=== PATIENT | male | born 1955 | race Caucasian/White ===

== ENCOUNTER 2021-05-07 19:49 | Emergency (ER) | payer OTHER ==
[~2021-05-07] VITALS: Ht 182.9 cm; Wt 106.6 kg
[~2021-05-07 19:49] MED LIST: ALBIPROI INH; ALBU90OI; ALBU90OI INH; AZIT250 PO; CIPR500 PO; CLAR500; Cardizem CD 12120 MG PO; Crutch1 EACH MISC; DIAZ5 PO; FEXPSEER; FLUSAL5005 IH; GUAI600T33 PO; HYDACE5325 PO; LEVA.63IS IH; LEVFLO500 PO; Mucinex600 MG PO; NAPR500 PO; NEBI5 PO; OMEPRAZOLE MAGN20 MG PO; PRED20 PO; Prednisone20 MG PO; THEO100ERA PO; TIOT18 IH; TORSE20 PO; Ventolin Soln3 ML INH; XARELTO20 MG PO; Zithromax250 MG PO; [UNRECOGNIZED DRUG - CODE]
[2021-05-07] MEDS ORDERED: TADALAFIL5 M1 PO (19:58)
[2021-05-07] MEDS ORDERED: Lisinopril2.5 MG (19:58)
[2021-05-07 20:17] LABS: BASOPHILS ABSOLUTE AUTO 0.07 K/mm3 (0.00-0.23); BASOPHILS PERCENT AUTO 1 % (0-2); EOSINOPHILS ABSOLUTE AUTO 0.25 K/mm3 (0.00-0.68); EOSINOPHILS PERCENT AUTO 4 % (0-6); Hemoglobin 15.7 g/dL (13.5-17.5); IMMATURE GRAN ABSOLUTE AUTO 0.03 K/mm3 (0.00-0.10); IMMATURE GRAN PERCENT AUTO 1 % (0-1); LYMPHOCYTES ABSOLUTE AUTO 1.43 K/mm3 (0.84-5.20); LYMPHOCYTES PERCENT AUTO 23 % (21-46); MONOCYTES PERCENT AUTO 8 % (4-13); Mean Corpuscular HGB 30.2 pg (26.0-34.0); Mean Corpuscular HGB Conc 33.4 g/dL (31.5-36.5); Mean Corpuscular Volume 90 fL (80-100); Mean Platelet Volume 10.3 fL (9.1-12.4); NEUTROPHILS ABSOLUTE AUTO 3.92 K/mm3 (1.96-9.15); NEUTROPHILS PERCENT AUTO 63 % (41-73); Platelet Count 176 K/mm3 (150-400); RDW Coefficient Variation 12.9 % (11.7-14.2); RDW Standard Deviation 42.6 fL (35.1-46.3)
[2021-05-07 20:37] LABS: Troponin I <0.015 ng/mL (0.000-0.040)
[2021-05-07 20:38] LABS: Alanine Aminotransfer (ALT/SGP 24 U/L (12-78); Albumin, Blood 3.6 g/dL (3.4-5.0); Albumin/Globulin Ratio 1.1 (0.8-1.8); Alk Phos 83 U/L (50-136); Anion Gap 5 mmol/L (6-16); Aspartate Aminotrans (AST/SGOT 16 U/L (12-37); Bilirubin, Total 0.4 mg/dL (0.1-1.0); Blood Urea Nitrogen 18 mg/dL (8-24); Bun/Creatinine Ratio 20.1 (12.0-20.0); CO2, Blood 28 mmol/L (21-32); Calcium, Blood 8.3 mg/dL (8.5-10.1); Chloride, Blood 102 mmol/L (98-108); Globulin, Blood 3.2 g/dL (2.2-4.0); Glomerular Filtration Rate >60 (60-); Glucose, Blood 103 mg/dL (70-99); Potassium, Blood 4.5 mmol/L (3.5-5.5); Sodium, Blood 135 mmol/L (136-145); Total Protein, Blood 6.8 g/dL (6.4-8.2)
[2021-05-08] MEDS ORDERED: Prednisone50 MG PO (01:03)
[2021-05-08] MEDS ORDERED: Zithromax250 MG PO (01:03)
== END 2021-05-08 01:12 | disposition home or self-care (01) ==
LOC: ER 19:49
PROVIDERS: Physician Assistant
DX: J44.1 Chronic obstructive pulmonary disease with (acute) exacerbation (principal); Z79.01 Long term (current) use of anticoagulants; Z79.52 Long term (current) use of systemic steroids; Z79.899 Other long term (current) drug therapy
CPT/HCPCS: 36415; 71046; 80053; 83880; 84484; 85025; 93005; 93010; 94640; 94644; 99285-25; J7512

== ENCOUNTER 2023-02-22 02:00 | Emergency (ER) | payer MEDICARE ==
[~2023-02-22] VITALS: Ht 182.9 cm; Wt 99.8 kg
[~2023-02-22 02:00] MED LIST changes: +Lisinopril2.5 MG; +Prednisone50 MG PO; +TADALAFIL5 M1 PO
[2023-02-22] MEDS ORDERED: LEVOFLOXACIN50011 PO (02:18)
[2023-02-22] MEDS ORDERED: PRED20 PO (02:19)
[2023-02-22] MEDS ORDERED: IPRATROPIUM BRO30 ML (02:19)
[2023-02-22] MEDS ORDERED: FLUTICASONE PRO16 GM (02:20)
[2023-02-22] MEDS ORDERED: LISI20 PO (02:20)
[2023-02-22] MEDS ORDERED: TRELEGY ELLIPT1 EAC1 IH (02:25)
[2023-02-22 02:53] LABS: Hematocrit 38.7 % (37.0-53.0); Hemoglobin 13.3 g/dL (13.5-17.5); Mean Corpuscular HGB 30.8 pg (26.0-34.0); Mean Corpuscular HGB Conc 34.4 g/dL (31.5-36.5); Mean Corpuscular Volume 90 fL (80-100); Mean Platelet Volume 10.1 fL (9.1-12.4); Platelet Count 234 K/mm3 (150-400); RDW Coefficient Variation 12.5 % (11.7-14.2); RDW Standard Deviation 41.4 fL (35.1-46.3); Red Blood Cell Count 4.32 M/mm3 (4.30-5.90); White Blood Cell Count 7.57 K/mm3 (4.00-11.30)
[2023-02-22 03:17] LABS: Albumin, Blood 2.7 g/dL (3.4-5.0); Albumin/Globulin Ratio 0.7 (0.8-1.8); Bilirubin, Total 0.2 mg/dL (0.1-1.0); Calcium, Blood 8.9 mg/dL (8.5-10.1); Creatinine, Blood 0.63 mg/dL (0.60-1.20); Potassium, Blood 4.2 mmol/L (3.5-5.5); Total Protein, Blood 6.7 g/dL (6.4-8.2)
[2023-02-22 03:30] LABS: Influenza A, PCR NEGATIVE (NEGATIVE); Influenza B, PCR NEGATIVE (NEGATIVE); Resp Syncytial Virus, PCR NEGATIVE (NEGATIVE); SARS-Cov-2 (COVID-19) PCR, MMC NEGATIVE (NEGATIVE)
[2023-02-22 03:51] LABS: BAND PERCENT MAN 1 % (0-8); BASOPHILS ABSOLUTE MAN 0.07 K/mm3 (0.00-0.23); BASOPHILS PERCENT MAN 1 % (0-2); EOSINOPHILS ABSOLUTE MAN 0.15 K/mm3 (0.00-0.68); EOSINOPHILS PERCENT MAN 2 % (0-6); LYMPHOCYTES % ATYPICAL MANUAL 3 % (0-0); LYMPHOCYTES ABSOLUTE MAN 1.51 K/mm3 (0.84-5.20); LYMPHOCYTES PERCENT MAN 17 % (21-46); MONOCYTES ABSOLUTE MAN 0.68 K/mm3 (0.16-1.47); MONOCYTES PERCENT MAN 9 % (4-13); MYELOCYTE ABSOLUTE MAN 0.15 K/mm3 (0.00-0.00); MYELOCYTE PERCENT MAN 2 % (0-0); NEUTROPHILS ABSOLUTE MAN 4.99 K/mm3 (1.96-9.15); SEG NEUTROPHILS PERCENT MAN 65 % (41-73); TOTAL CELLS COUNTED 100
[2023-02-22] MEDS ORDERED: LOSA50 PO (05:57)
== END 2023-02-22 07:33 | disposition home or self-care (01) ==
LOC: ER 02:00
PROVIDERS: Emergency Medicine
DX: T78.3XXA Angioneurotic edema, initial encounter (principal); T46.4X5A Adverse effect of angiotensin-converting-enzyme inhibitors, initial encounter; T39.395A Adverse effect of other nonsteroidal anti-inflammatory drugs [NSAID], initial encounter; I10 Essential (primary) hypertension; J44.9 Chronic obstructive pulmonary disease, unspecified; Z79.52 Long term (current) use of systemic steroids; Z79.899 Other long term (current) drug therapy
CPT/HCPCS: 0241U; 71045; 80053; 85025; 93005; 93010; J1200

== ENCOUNTER 2023-12-07 10:32 | Emergency (ER) | payer MEDICARE, OTHER ==
[~2023-12-07] VITALS: Ht 182.9 cm; Wt 99.8 kg
[~2023-12-07 10:32] MED LIST changes: +FLUTICASONE PRO16 GM; +IPRATROPIUM BRO30 ML; +LEVOFLOXACIN50011 PO; +LISI20 PO; +LOSA50 PO; +TRELEGY ELLIPT1 EAC1 IH
[2023-12-07 11:30] LABS: BASOPHILS ABSOLUTE AUTO 0.03 K/mm3 (0.00-0.23); BASOPHILS PERCENT AUTO 1 % (0-2); EOSINOPHILS ABSOLUTE AUTO 0.02 K/mm3 (0.00-0.68); EOSINOPHILS PERCENT AUTO 1 % (0-6); Hematocrit 48.4 % (37.0-53.0); Hemoglobin 16.5 g/dL (13.5-17.5); IMMATURE GRAN ABSOLUTE AUTO 0.02 K/mm3 (0.00-0.10); IMMATURE GRAN PERCENT AUTO 1 % (0-1); LYMPHOCYTES ABSOLUTE AUTO 0.65 K/mm3 (0.84-5.20); LYMPHOCYTES PERCENT AUTO 16 % (21-46); MONOCYTES ABSOLUTE AUTO 0.48 K/mm3 (0.16-1.47); MONOCYTES PERCENT AUTO 12 % (4-13); Mean Corpuscular HGB 31.3 pg (26.0-34.0); Mean Corpuscular HGB Conc 34.1 g/dL (31.5-36.5); Mean Corpuscular Volume 92 fL (80-100); Mean Platelet Volume 10.3 fL (9.1-12.4); NEUTROPHILS ABSOLUTE AUTO 2.82 K/mm3 (1.96-9.15); NEUTROPHILS PERCENT AUTO 70 % (41-73); Platelet Count 145 K/mm3 (150-400); RDW Coefficient Variation 12.9 % (11.7-14.2); RDW Standard Deviation 43.9 fL (35.1-46.3); Red Blood Cell Count 5.28 M/mm3 (4.30-5.90); White Blood Cell Count 4.02 K/mm3 (4.00-11.30)
[2023-12-07 12:05] LABS: Albumin, Blood 3.2 g/dL (3.4-5.0); Albumin/Globulin Ratio 0.9 (0.8-1.8); Bilirubin, Total 0.5 mg/dL (0.1-1.0); Creatinine, Blood 0.82 mg/dL (0.60-1.20); Globulin, Blood 3.5 g/dL (2.2-4.0); Potassium, Blood 4.3 mmol/L (3.5-5.5); Total Protein, Blood 6.7 g/dL (6.4-8.2)
[2023-12-07 12:21] LABS: Influenza A, PCR NEGATIVE (NEGATIVE); Influenza B, PCR NEGATIVE (NEGATIVE); Resp Syncytial Virus, PCR NEGATIVE (NEGATIVE); SARS-Cov-2 (COVID-19) PCR, MMC NEGATIVE (NEGATIVE)
[2023-12-07 12:45] VITALS: BP 133/102
[2023-12-07] MEDS ORDERED: Prednisone20 MG PO (12:50)
[2023-12-07] MEDS ORDERED: LEVFLO500 PO (12:50)
== END 2023-12-07 13:25 | disposition home or self-care (01) ==
LOC: ER 10:32
PROVIDERS: Physician Assistant
DX: J44.1 Chronic obstructive pulmonary disease with (acute) exacerbation (principal); I10 Essential (primary) hypertension; F17.210 Nicotine dependence, cigarettes, uncomplicated; Z79.52 Long term (current) use of systemic steroids; Z79.899 Other long term (current) drug therapy; Z11.52 Encounter for screening for COVID-19
CPT/HCPCS: 0241U; 71045; 80053; 83880; 85025; 85379; 93005; 93010; 94640; 94664; 99285-25; A9270; J7512

== ENCOUNTER 2023-12-09 13:51 | Inpatient (IN) | payer MEDICARE, OTHER ==
[~2023-12-09] VITALS: Ht 182.9 cm; Wt 98.4 kg
[2023-12-09 14:49] LABS: BASOPHILS ABSOLUTE AUTO 0.02 K/mm3 (0.00-0.23); BASOPHILS PERCENT AUTO 0 % (0-2); EOSINOPHILS PERCENT AUTO 0 % (0-6); Hematocrit 50.2 % (37.0-53.0); IMMATURE GRAN ABSOLUTE AUTO 0.03 K/mm3 (0.00-0.10); IMMATURE GRAN PERCENT AUTO 1 % (0-1); LYMPHOCYTES ABSOLUTE AUTO 0.37 K/mm3 (0.84-5.20); LYMPHOCYTES PERCENT AUTO 7 % (21-46); MONOCYTES ABSOLUTE AUTO 0.11 K/mm3 (0.16-1.47); MONOCYTES PERCENT AUTO 2 % (4-13); Mean Corpuscular HGB Conc 33.9 g/dL (31.5-36.5); Mean Corpuscular Volume 92 fL (80-100); Mean Platelet Volume 10.6 fL (9.1-12.4); NEUTROPHILS ABSOLUTE AUTO 4.77 K/mm3 (1.96-9.15); NEUTROPHILS PERCENT AUTO 90 % (41-73); Platelet Count 192 K/mm3 (150-400); RDW Coefficient Variation 12.9 % (11.7-14.2); RDW Standard Deviation 43.4 fL (35.1-46.3); Red Blood Cell Count 5.48 M/mm3 (4.30-5.90)
[2023-12-09 15:17] LABS: Albumin, Blood 3.5 g/dL (3.4-5.0); Albumin/Globulin Ratio 0.9 (0.8-1.8); Bilirubin, Total 0.5 mg/dL (0.1-1.0); Bun/Creatinine Ratio 22.3 (12.0-20.0); Calcium, Blood 9.7 mg/dL (8.5-10.1); Creatinine, Blood 0.76 mg/dL (0.60-1.20); Globulin, Blood 3.8 g/dL (2.2-4.0); Potassium, Blood 4.6 mmol/L (3.5-5.5); Total Protein, Blood 7.3 g/dL (6.4-8.2)
[2023-12-09 22:30] VITALS: BP 136/98
--- NOTE | 2023-12-09 23:56 | NUR ---
NEW ADMIT. PATIENT ARRIVED TO ROOM 327 VIA WHEELCHAIR AND ONE PERSON ASSIST FROM ER. PATIENT ARRIVED WITH 4 L'S OF O2 VIA OXYGEN TANK. PATIENT SELF TRANSFERED TO HOSPITAL BED FROM WHEELCHAIR.
[2023-12-10 04:16] VITALS: BP 126/78
--- NOTE | 2023-12-10 04:24 | NUR ---
SHIFT SUMMARY. PATIENT IS AOX4. PATIENT HAS SOB WITH EXERTION. PATIENT IS ON 4 L'S O2 VIA NASAL CANNULA SATTING >93%. PATIENT HAS STEADY GAIT, IS CURRENTLY A SBA D/T LINES, TUBES, AND TELE. PATIENT CALLS APPROPRIATELY AND IS ABLE TO MAKE HIS NEEDS KNOWN. PATIENT HAS HOME MEDS LOCKED IN DRAWER. PATIENT IS AN EVERYDAY SMOKER-DENIES NEED FOR NICOTINE PATCH. PATIENT IS RESTING W/RESPIRATIONS EQUAL AND UNLABORED. PATIENT DENIES PAIN. BED IS LOCKED IN THE LOWEST POSITION WITH CALL LIGHT IN REACH. NO S/S OF DISTRESS NOTED AT THIS TIME.
[2023-12-10 06:23] LABS: Hematocrit 46.5 % (37.0-53.0); Hemoglobin 15.4 g/dL (13.5-17.5); Mean Corpuscular HGB Conc 33.1 g/dL (31.5-36.5); Mean Corpuscular Volume 94 fL (80-100); Mean Platelet Volume 10.8 fL (9.1-12.4); Platelet Count 172 K/mm3 (150-400); RDW Coefficient Variation 12.9 % (11.7-14.2); RDW Standard Deviation 44.1 fL (35.1-46.3); Red Blood Cell Count 4.97 M/mm3 (4.30-5.90); White Blood Cell Count 4.64 K/mm3 (4.00-11.30)
[2023-12-10 06:39] LABS: Calcium, Blood 8.6 mg/dL (8.5-10.1); Creatinine, Blood 0.79 mg/dL (0.60-1.20); Potassium, Blood 4.7 mmol/L (3.5-5.5)
[2023-12-10 07:21] VITALS: BP 150/97
--- NOTE | 2023-12-10 09:00 | NUR ---
pt sitting up on the side of the bed awake a/ox4, upset about his stay durring the ER, was able to fix a couple of the complaints others were dr concerning meds, he has a bag of meds in his room, I explained to him he isn't suppose to have his medications in the room, asked me if he could just take his, explained why he should not, he agreed not to, explained the DrShayla will likely order more iv abx when he comes so not to take his from home, lungs have exp wheezing t/o, nonproductive cough, on 3 liters o2 via n/c, resp even and unlabored, hrr, no edema noted, ppp+2, cap refill <3 sec, vs stable, afebrile, piv to rac is clear and patent, infusing ns as ordered, btx4, abd flat soft nontender, voids without diff, skin c/w/d, maew, daniel, call light in reach.
--- NOTE | 2023-12-10 13:00 | NUR ---
was in, ordered iv levaquin, told pt it's due at 1400, will bring in soon, he said he took his own med, explained that we talked about this this am, he agreed to not take it, he started in on something about the ED. notified Dr. Sanchez, and told pt will start iv med tomorrow as he took po levaquin. call light in reach.
[2023-12-10 16:42] VITALS: BP 147/97
--- NOTE | 2023-12-10 19:20 | NUR ---
pt had a coughing episode that raised his heart rate to the 104's per tele monitor, he states nonproductive, no further changes this shift, call light in reach.
[2023-12-10 20:29] VITALS: BP 144/90
--- NOTE | 2023-12-10 23:34 | NUR ---
HOSPITALIST CONTACTED. HOSPITALIST NOTIFIED OF PATIENT HAVING A 24 BEAT RUN OF V-TACH. HOSPITALIST ASKED WHAT PATIENT WAS ADMITTED FOR-PATIENT ADMITTED FOR COPD EXACERBATOIN. HOSPITALIST MADE NO ORDERS OR CHANGES AT THIS TIME PATIENT IS ASYMPTOMATIC. PATIENT WILL CONTINUE TO BE MONITORED BY TELEMETRY.
--- NOTE | 2023-12-11 00:45 | NUR ---
HOSPITALIST CONTACTED. PATIENT HAS HAD CHANGES TO HIS TELEMETRY MONITORING. EKG DONE AND CHANGES NOTED TO THE EKG-NOTIFIED HOSPITALIST DR. DE LA CRUZ. DR. DE LA CRUZ CAME UP TO MEDICAL FLOOR AND REVIEWED PATIENTS EKG AND RHYTHM STRIPS. DR. DE LA CRUZ PUT IN ORDER FOR MAGNESSIUM LEVEL TO BE DRAWN. PATIENT ASYMPTOMATIC.
[2023-12-11 01:33] LABS: BASOPHILS ABSOLUTE AUTO 0.02 K/mm3 (0.00-0.23); BASOPHILS PERCENT AUTO 0 % (0-2); EOSINOPHILS ABSOLUTE AUTO 0.19 K/mm3 (0.00-0.68); EOSINOPHILS PERCENT AUTO 3 % (0-6); Hematocrit 44.9 % (37.0-53.0); Hemoglobin 14.8 g/dL (13.5-17.5); IMMATURE GRAN ABSOLUTE AUTO 0.05 K/mm3 (0.00-0.10); IMMATURE GRAN PERCENT AUTO 1 % (0-1); LYMPHOCYTES ABSOLUTE AUTO 0.39 K/mm3 (0.84-5.20); LYMPHOCYTES PERCENT AUTO 6 % (21-46); MONOCYTES ABSOLUTE AUTO 0.27 K/mm3 (0.16-1.47); MONOCYTES PERCENT AUTO 4 % (4-13); Mean Corpuscular Volume 94 fL (80-100); Mean Platelet Volume 10.2 fL (9.1-12.4); NEUTROPHILS ABSOLUTE AUTO 5.56 K/mm3 (1.96-9.15); NEUTROPHILS PERCENT AUTO 86 % (41-73); Platelet Count 163 K/mm3 (150-400); RDW Coefficient Variation 12.8 % (11.7-14.2); RDW Standard Deviation 44.1 fL (35.1-46.3); Red Blood Cell Count 4.77 M/mm3 (4.30-5.90); White Blood Cell Count 6.48 K/mm3 (4.00-11.30)
[2023-12-11 01:50] LABS: Bun/Creatinine Ratio 26.4 (12.0-20.0); Calcium, Blood 8.5 mg/dL (8.5-10.1); Creatinine, Blood 0.72 mg/dL (0.60-1.20); Magnesium, Blood 2.2 mg/dL (1.6-2.4); Potassium, Blood 4.7 mmol/L (3.5-5.5)
--- NOTE | 2023-12-11 03:15 | NUR ---
TELEMETRY CONTACTED THIS RN TO NOTIFY PATIENTS HEART RATE HAD BEEN FLEXUATING FROM THE 90'S- TO 1-TEENS. PATIENT SUSTAINED IN AT 118-120 FOR APPROX. 6 MINUTES. PATIENT ASYMPTOMATIC. CURRENT HEART RATE DOWN TO 95.
[2023-12-11 03:57] VITALS: BP 127/73
--- NOTE | 2023-12-11 04:30 | NUR ---
SHIFT SUMMARY. PATIENT IS APX4. PATIENT CALLS APPROPRIATELY AND IS ABLE TO MAKE HIS NEEDS KNOWN. PATIENT HAS HAD CHANGES TO HIS EKG AND TELEMETRY READINGS-SEE PREVIOUS NOTES. PATIENT HAS SLEPT OFF AND ON T/O NIGHT. PATIENT REQUESTED FOR SOME SNACKS-CHEESE PROVIDED. PATIENTS NEEDS ADDRESSED. PATIENT DENIES PAIN. PATIENT REPORTS THAT HE IS STILL HAVING SOB AND THAT IT IS THE SAME FROM WHEN HE CAME IN. BED IS LOCKED IN THE LOWEST POSITION WITH CALL LIGHT IN REACH.
[2023-12-11 08:12] VITALS: BP 150/88
--- NOTE | 2023-12-11 12:00 | NUR ---
pt was going to take a shower, got into shower and sat down and desated to mid 80's, was on 2 liters at that time, he was assisted back to bed and o2 turned back up to 4 liters and is doing better but going to hold off on the shower. call light in reach.
[2023-12-11 16:13] VITALS: BP 152/91
--- NOTE | 2023-12-11 17:06 | NUR ---
pt laying in bed states his night was ok and feeling better this am, a/ox4, cooperative with care, lungs are course with exp wheezing t/o, has a nonproductive harsh cough, currently on 4 liters 02 via n/c, resp even and unlabored at rest, hrr, tele in place running st in the oneteens per monitor, see strip, no edema noted, ppp+2, cap refill<3 sec, vs stable, afebrile, piv to rac site is clear and patent, btx4, abd flat soft nontender, voids without diff, skin c/w/d, maew, daniel, call light in reach.
--- NOTE | 2023-12-11 18:34 | NUR ---
pt doing well this evening, no further changes this shift. call light in reach.
[2023-12-11 19:46] VITALS: BP 141/100
[2023-12-12 03:35] VITALS: BP 116/81
[2023-12-12 05:21] LABS: BASOPHILS ABSOLUTE AUTO 0.01 K/mm3 (0.00-0.23); BASOPHILS PERCENT AUTO 0 % (0-2); EOSINOPHILS PERCENT AUTO 0 % (0-6); Hematocrit 46.3 % (37.0-53.0); Hemoglobin 15.3 g/dL (13.5-17.5); IMMATURE GRAN ABSOLUTE AUTO 0.09 K/mm3 (0.00-0.10); IMMATURE GRAN PERCENT AUTO 1 % (0-1); LYMPHOCYTES PERCENT AUTO 6 % (21-46); MONOCYTES ABSOLUTE AUTO 0.46 K/mm3 (0.16-1.47); MONOCYTES PERCENT AUTO 6 % (4-13); Mean Corpuscular HGB 31.3 pg (26.0-34.0); Mean Corpuscular Volume 95 fL (80-100); Mean Platelet Volume 10.4 fL (9.1-12.4); NEUTROPHILS ABSOLUTE AUTO 7.25 K/mm3 (1.96-9.15); NEUTROPHILS PERCENT AUTO 87 % (41-73); Platelet Count 180 K/mm3 (150-400); RDW Coefficient Variation 12.7 % (11.7-14.2); RDW Standard Deviation 44.2 fL (35.1-46.3); Red Blood Cell Count 4.89 M/mm3 (4.30-5.90); White Blood Cell Count 8.31 K/mm3 (4.00-11.30)
[2023-12-12 06:04] LABS: Anion Gap Unable to Calculate mmol/L (6-16); Blood Urea Nitrogen 19 mg/dL (8-24); Bun/Creatinine Ratio 22.2 (12.0-20.0); CO2, Blood 37 mmol/L (21-32); Calcium, Blood 8.8 mg/dL (8.5-10.1); Chloride, Blood 102 mmol/L (98-108); Creatinine, Blood 0.86 mg/dL (0.60-1.20); Glomerular Filtration Rate 96 (60-); Glucose, Blood 132 mg/dL (70-99); Potassium, Blood 4.8 mmol/L (3.5-5.5); Sodium, Blood 138 mmol/L (136-145)
--- NOTE | 2023-12-12 07:45 | NUR ---
SHIFT SUMMARY. PATIENT IS ALERT AND ORIENTED X4. PATIENT IS INDEPENDENT IN ROOM. PATIENT ON 4 L'S VIA NASAL CANNULA. PATIENT CALLS APPROPRIATELY AND IS ABLE TO MAKE NEEDS KNOWN. PATIENTS TELE IS ON AND LEADS ON PLACE. NO ACUTE CHANGES NOTED T/O SHIFT. BED IS LOCKED IN THE LOWEST POSITION WITH CALL LIGHT IN REACH. NO S/S OF DISTRESS NOTED..
[2023-12-12 07:49] VITALS: BP 153/100
[2023-12-12 16:55] VITALS: BP 147/80
--- NOTE | 2023-12-12 18:20 | NUR ---
PATIENT A/OX4, UP INDEPENDENTLY IN ROOM. VSS, 4LO2 VIA NC TO MAINTAIN SATS. RA IS BASELINE. ST WITH BBB 110-120 THIS EVENING. DENIES ANY CHEST PAIN OR PRESSURE. LUNGS WITH WHEEZES THROUGHOUT, SPUTUM SAMPLE SENT THIS AFTERNOON. SKIN INTACT. CALM AND COOPERATIVE WITH CARE, ABLE TO MAKE NEEDS KNOWN. 20G IV TO L WRIST AND SL. TOLERATING REGULAR DIET. NO NEW CONCERNS THIS THIS SHIFT.
[2023-12-12 19:20] VITALS: BP 129/88
[2023-12-13 02:52] VITALS: BP 118/72
--- NOTE | 2023-12-13 04:20 | NUR ---
SHIFT SUMMARY CHELO WAS ALERT AND FULLY ORIENTED ON ASSESSMENT, AND HE IS INDEPENDENT IN THE ROOM. PT HERE FOR COPD EXACERBATION AND PRIMARY COMPLAINT IS SOB. PT SATTING 95% ON 4L VIA NC, HR IS TACHY 90'S -100'S. PT HAD AN EPISODE OF DRAMATICALLY INCREASED SOB DURING A DUONEB TREATMENT EARLY IN THE SHIFT, WITH DESATURATION TO 86% FOR A BRIEF PERIOD. EPISODE RESOLVED QUICKLY WITH NO INTERVENTIONS NEEDED, TELE REPORTS EPISODES OF ST ELEVATION THAT COINSIDE WITH PT EXERTION. HOSPITALIST NOTIFIED OF EVENT, CONTINUOUS BIOX APPLIED. AFTER DISCUSSING THE PT'S EPISODE OF DISTRESS WITH THE PT, IT SEEMS LIKELY THAT THE PT'S SOB BECAME EXACERBATED BY ANXIETY. NO OTHER EVENTS TONIGHT, PT RESTING IN BED IN A LOW POSITION WITH THE CALL LIGHT IN REACH.
[2023-12-13 08:03] VITALS: BP 114/81
[2023-12-13 14:03] LABS: Adenovirus Not Detected (NOT DETECT); Bordetella pertussis Not Detected (NOT DETECT); Chlamydophila pneumoniae Not Detected (NOT DETECT); Coronavirus 229E Not Detected (NOT DETECT); Coronavirus HKU1 Not Detected (NOT DETECT); Coronavirus NL63 Not Detected (NOT DETECT); Coronavirus OC43 Not Detected (NOT DETECT); Human Metapneumovirus Not Detected (NOT DETECT); Human Rhinovirus/Enterovirus Not Detected (NOT DETECT); Influenza A/2009-H1 Not Detected (NOT DETECT); Influenza A/H1 Not Detected (NOT DETECT); Influenza A/H3 Not Detected (NOT DETECT); Influenza B Not Detected (NOT DETECT); Mycoplasma pneumoniae Not Detected (NOT DETECT); Parainfluenza Virus 1 Not Detected (NOT DETECT); Parainfluenza Virus 2 Not Detected (NOT DETECT); Parainfluenza Virus 3 Not Detected (NOT DETECT); Parainfluenza Virus 4 Not Detected (NOT DETECT); Respiratory Syncytial Virus Not Detected (NOT DETECT); SARS-Cov-2 (COVID-19), BioFire Not Detected (NOT DETECT)
[2023-12-13 16:45] VITALS: BP 119/84
--- NOTE | 2023-12-13 19:05 | NUR ---
SHIFT SUMMARY PATIENT HAD SOME EPISODES OF DESAT TO 86-89% ON 4LPM WITH TALKING OR COUGHING AT THIS AFTERNOON HAD SOME CHEST PRESSURE WITH HR UP TO 120 AND O2 86%. O2 INCREASED TO 5LPM AND SATTING AT 91-93%, HR CAME DOWN TO 110. EKG DONE. DR TRIPLETT NOTIFIED. TROPONINS ORDERED. PATIENT REPORTS PAIN GONE BY END OF EKG. HE IS UP TO BATHROOM INDEPENDENT. BED IN LOW POSITION, CALL LIGHT IN REACH. HE CALLS APPROPRIATELY
[2023-12-13 20:07] VITALS: BP 140/85
--- NOTE | 2023-12-13 23:40 | NUR ---
NOTIFIED BY U ASSISTANT TODDLER TEACHER THAT PT HAS HAD SUSTAINED ST ELEVATION SINCE CONTINUOS CARDIAC MONITORING INITIATED. EKG DURING DAY SHIFT UNCHANGED FROM PRIOR EKG'S. PT ASYMPTOMATIC LYING IN BED WATCHING TV HR HIGH 90'S. HOSPITALIST NOTIFIED AND NO FURTHER ORDERS AT THIS TIME. WILL CONTINUE TO MONITOR FOR CHANGE IN PT CONDITION.
[2023-12-14 05:09] VITALS: BP 108/60
--- NOTE | 2023-12-14 06:44 | NUR ---
SHIFT SUMMARY NOC PT A/O X 4. PLEASANT AND COOPERATIVE WITH CARE. PT HAD FREQUENT COUGING EPISODES AT BEGINNING OF SHIFT AND HR WOULD CLIMB INTO 120'S-130'S AND WOULD DESATURATE TO MID 80'S WHILE ON 4L/NC. O2 TITRATED TO 4.5L/NC, SPO2 BEING MAINTAINED > 90% ON BIOX. ON TELE RUNNING SINUS TACHYCARDIA IN LOW 100'S WHEN AT REST AND 120'S WHEN COUGHING. TELE NOTIFIED RN THAT PT HAS HAD CONSTANT ST ELEVATION SINCE ADMIT, PT ASYMPTOMATIC WHEN CHECKED AND HOSPITALIST NOTIFIED WITH NO FURTHER ORDERS GIVEN, WILL CONTINUE TO MONITOR FOR CHANGE IN PT CONDITION. PT IS CURRENTLY RESTING WITH BED IN LOWEST POSITION, AND CALL LIGHT WITHIN REACH.
[2023-12-14 09:29] VITALS: BP 132/81
--- NOTE | 2023-12-14 10:15 | NUR ---
PATIENT REFUSING TO WEAR A PATIENT WRIST BAND, THERE IS A WRIST BAND TAPED TO THE COMPUTER IN THE ROOM, I NOTIFIED PATIENT PER HOSPITAL POLICY AND SAFETY WE REQUIRE WRIST BAND TO BE WORN, AND PATIENT STILL DECLINED TO WEAR ONE. THE ISSUE STARTED TO AGITATE THE PATIENT, CHARGE NURSE NOTIFIED.
[2023-12-14 16:19] VITALS: BP 163/80
[2023-12-14 19:40] VITALS: BP 134/78
--- NOTE | 2023-12-14 20:30 | NUR ---
SHIFT SUMMARY PATIENT COUGHING UP HINES THICK SPUTUM THROUGHOUT DAY AND DESATURATES TO LOW 80 WITH HR UP TO 130S BRIEFLY REQUIRING ADDITIONAL OXYGEN THROUGH MOUTH UP O 10 LPM, AFTER 1 MINUTE O2 INCREASES TO 94% AND HR COMES DOWN TO 100. O2 NC THEN DECREASED TO 5LPM WITH SAT GENERALLY BETWEN 88-91% RESTING. DR TRIPLETT AWARE, FOLLOW UP CHEST XRAY ORDERED FOR TOMORROW, CHEST PHISIOTHERAPY ALSO ORDERED. PATIENT UP AD WENDIE IN ROOM, BED IN LOW POSITION, CALL [facility] IN REACH. PATIENT ABLE TO MAKE NEEDS KNOWN.
[2023-12-15 02:25] VITALS: BP 108/70
--- NOTE | 2023-12-15 04:12 | NUR ---
SHIFT SUMMARY: PT SLEPT MOST OF THE NIGHT. PT WOULD WAKE OCCASIONALLY WITH COUGING. DURING COUGHING SPELLS PT CONTINIOUS PULSE OX DROPPING BELOW 90 AND PULSE WOULD ELEVATE TO 120'S. MULTIPLE TIMES I WOULD CHECK ON PT AND OXYGEN WOULD BE AROUND HIS CHIN. PT REPORTING HE LIKES TO KEEP NASAL CANNULA IN HIS MOUTH BUT IT APPEARS TO BE SLIPPING OFF THROUGH THE NIGHT. PT CURRENTLY ON 5L O2. PT PRODUCING THICK HINES-WHITE SPUTUM WHEN COUGHING. COUGH SOUNDS WET AND LABORED. TELE READING SINUS TACH, HR 115. PT IS HAVING A REPEAT CHEST X RAY THIS AM. 12/15/23 DAYANA SCHULTZ RN
[2023-12-15 05:43] LABS: BASOPHILS ABSOLUTE AUTO 0.02 K/mm3 (0.00-0.23); BASOPHILS PERCENT AUTO 0 % (0-2); EOSINOPHILS PERCENT AUTO 0 % (0-6); Hematocrit 50.1 % (37.0-53.0); Hemoglobin 16.3 g/dL (13.5-17.5); IMMATURE GRAN ABSOLUTE AUTO 0.11 K/mm3 (0.00-0.10); IMMATURE GRAN PERCENT AUTO 1 % (0-1); LYMPHOCYTES ABSOLUTE AUTO 0.34 K/mm3 (0.84-5.20); LYMPHOCYTES PERCENT AUTO 4 % (21-46); MONOCYTES ABSOLUTE AUTO 0.43 K/mm3 (0.16-1.47); MONOCYTES PERCENT AUTO 5 % (4-13); Mean Corpuscular HGB 30.7 pg (26.0-34.0); Mean Corpuscular HGB Conc 32.5 g/dL (31.5-36.5); Mean Corpuscular Volume 94 fL (80-100); Mean Platelet Volume 9.9 fL (9.1-12.4); NEUTROPHILS ABSOLUTE AUTO 7.48 K/mm3 (1.96-9.15); NEUTROPHILS PERCENT AUTO 89 % (41-73); Platelet Count 201 K/mm3 (150-400); RDW Coefficient Variation 12.6 % (11.7-14.2); Red Blood Cell Count 5.31 M/mm3 (4.30-5.90); White Blood Cell Count 8.38 K/mm3 (4.00-11.30)
[2023-12-15 06:12] LABS: Bilirubin, Total 0.5 mg/dL (0.1-1.0); Bun/Creatinine Ratio 27.5 (12.0-20.0); Calcium, Blood 8.6 mg/dL (8.5-10.1); Creatinine, Blood 0.95 mg/dL (0.60-1.20); Globulin, Blood 2.9 g/dL (2.2-4.0); Potassium, Blood 4.7 mmol/L (3.5-5.5); Total Protein, Blood 5.9 g/dL (6.4-8.2)
[2023-12-15 07:44] VITALS: BP 154/96
[2023-12-15 15:57] VITALS: BP 124/74
[2023-12-15 19:25] VITALS: BP 122/83
--- NOTE | 2023-12-15 19:58 | NUR ---
SHIFT SUMMARY: PT A/O X 4, IND IN ROOM PLEASANT AND COOPERATIVE. PT O2 TITRATED BETWEEN 5-7 LPM VIA NC THROUGHOUT THE DAY. CURRENTLY ON 7 LPM. CONTINUES TO HAVE HARSH COUGHING SPELLS DESPITE ROBITUSSIN. MINIMAL SPUTUM PRODUCTION, LS WHEEZING THROUGHOUT. PT KEEPS HIS HOME MEDS IN THE ROOM, REFUSES TO ALLOW THEM TO BE LOCKED UP. MD AWARE. PT AGREES VERBALLY HE WILL NOT TAKE MORE THAN WHAT IS PRESCRIBED AND WILL TAKE AT TIME IT IS DUE.
--- NOTE | 2023-12-15 23:42 | NUR ---
TELE; NOTIFIED BY TELE THAT PT HAD A 6 BEAT RUN OF VTACH. PT ASYMPTOMATIC AND LYING IN BED. WILL CONTINUE TO MONITOR.
[2023-12-16 03:40] VITALS: BP 109/73
--- NOTE | 2023-12-16 04:27 | NUR ---
SHIFT SUMMARY PT A&O X4, COOPERATIVE WITH CARE. TELEMETRY: ST @ 109. PT ON 5-7 L VIA NC. PT DESATS IN THE 80S. NEEDS REMINDERS TO KEEP OXYGEN IN. CONT BOIX MONITORING IN PLACE. PT HAS VERY HARSH COUGH. DECLINED NEEDING PRN COUGH MEDS. PT KEEPS HOME MEDICATIONS WITH HIM, REFUSES TO LOCK UP. PER REPORT AWARE. PT TO NOTIFY BEFORE TAKING ANY MEDICATIONS AND AGREES TO TAKE THEM AT THE SCHEDULED TIMES. PT INDEPENDENT IN ROOM. BED KEPT IN LOWEST POSITION WITH CALL LIGHT WITHIN REACH.
[2023-12-16 07:10] VITALS: BP 134/78
[2023-12-16 15:52] VITALS: BP 125/69
--- NOTE | 2023-12-16 18:40 | NUR ---
NO ACUTE CHANGES THIS SHIFT. PATIENT REMAINS ON 3-5L O2 VIA NS. SR/ST ON TELE. HAS HAD SHORT RUNS OF SVT OVER THE THE LAST FEW DAYS, AND THEN HR QUICKLY RETURNS TO 100-110. TOLERATING DIET. INDEPENDENT IN ROOM. COOPERATIVE WITH CARE, ABLE TO MAKE NEEDS KNOWN.
[2023-12-16 19:11] VITALS: BP 138/79
--- NOTE | 2023-12-17 03:56 | NUR ---
SHIFT SUMMARY MR SERRANO HAD AN EPISODE OF FEELING SOB AND TIGHTNESS IN HIS CHEST LAST EVENING WHICH WAS ALMOST IMMEDIATELY RELIEVED WITH ROBOTUSSIN. HE SAID IT GIVES HIM RAPID RELIEF. ON CONTINUOUS PULSE OXIMETER LOWEST READING NOTED TO BE 88%. HE HAS MOSTLY BEEN ON 5L N/C, HE DID INCREASE HIS OWN N/C UP TO 7L LAST EVENING WHICH WAS DECREASED BACK TO 5 WHEN HIS PULSE OX WAS MID 90S. ON TELEMETRY ST - NO CALLS FROM [email or web address]. HE DID DO INCENTIVE SPIROMETER WITH GOOD TECHNIQUE UP TO 750CC. UP INDEPENDENTLY TO THE BATHROOM. DENIED PAIN. BED LOW, CALL LIGHT IN REACH.
[2023-12-17 04:34] VITALS: BP 152/97
[2023-12-17 04:54] LABS: BASOPHILS ABSOLUTE AUTO 0.04 K/mm3 (0.00-0.23); BASOPHILS PERCENT AUTO 0 % (0-2); EOSINOPHILS PERCENT AUTO 0 % (0-6); Hematocrit 51.2 % (37.0-53.0); Hemoglobin 17.1 g/dL (13.5-17.5); IMMATURE GRAN ABSOLUTE AUTO 0.19 K/mm3 (0.00-0.10); IMMATURE GRAN PERCENT AUTO 2 % (0-1); LYMPHOCYTES ABSOLUTE AUTO 0.31 K/mm3 (0.84-5.20); LYMPHOCYTES PERCENT AUTO 3 % (21-46); MONOCYTES ABSOLUTE AUTO 0.51 K/mm3 (0.16-1.47); MONOCYTES PERCENT AUTO 5 % (4-13); Mean Corpuscular HGB 31.4 pg (26.0-34.0); Mean Corpuscular HGB Conc 33.4 g/dL (31.5-36.5); Mean Corpuscular Volume 94 fL (80-100); Mean Platelet Volume 9.8 fL (9.1-12.4); NEUTROPHILS ABSOLUTE AUTO 9.22 K/mm3 (1.96-9.15); NEUTROPHILS PERCENT AUTO 90 % (41-73); Platelet Count 179 K/mm3 (150-400); RDW Coefficient Variation 12.5 % (11.7-14.2); RDW Standard Deviation 43.1 fL (35.1-46.3); Red Blood Cell Count 5.45 M/mm3 (4.30-5.90); White Blood Cell Count 10.27 K/mm3 (4.00-11.30)
[2023-12-17 05:16] LABS: Calcium, Blood 8.8 mg/dL (8.5-10.1); Creatinine, Blood 0.84 mg/dL (0.60-1.20); Potassium, Blood 5.2 mmol/L (3.5-5.5)
[2023-12-17 07:06] VITALS: BP 144/88
--- NOTE | 2023-12-17 10:25 | NUR ---
MEDICATIONS PATIENT HAS HOME MEDS THAT HE IS DECLINING TO LET STAFF LOCK UP, STATED HE WILL LET RN KNOW IF HE USES THEM. EDUCATION ON POLICIES PROVIDED VERBALLY, PATIENT STATED "I DON'T GIVE A SHIT ABOUT POLICY, YOU CAN THROW IT OUT THE WINDOW, I'M KEEPING WHAT I NEED TO HELP ME BREATHE". CHARGE MADE AWARE. PATIENT EXPRESSED CONCERN WITH INCORRECT DOSE PILL COMING FROM PHARMACY, VERIFIED DOSE OF TADALFIL WELL PILL SHAPE AND COLOR WITH PHARM STAFF WELL WITH [employer] TO ASSIST WITH PATIENT'S ANXIETY. CARES ONGOING
[2023-12-17 15:35] VITALS: BP 116/71
--- NOTE | 2023-12-17 16:44 | NUR ---
SHIFT SUMMARY PATIENT AMBULATING IN ROOM INDEPENDENTLY THIS SHIFT, TITRATING HIS OWN OXYGEN BETWEEN 5 AND 7 LITERS. C/O SOB, ENCOURAGED TO USE INCENTIVE SPIROMETER AND FLUTTER VALVE THROUGHOUT SHIFT. SINUS TACH WITH PVC'S ON TELE. CARES ONGOING.
[2023-12-17 17:48] LABS: CK TOTAL 159 U/L (39-308); CK-BB 0 % (0-0); CK-MACRO TYPE I 0 % (0-0); CK-MACRO TYPE II 0 % (0-0); CK-MB 0 % (0-4); CK-MM 100 % (96-100)
--- NOTE | 2023-12-18 04:25 | NUR ---
SHIFT SUMMARY CHELO WAS ALERT AND ORIENTED ON ASSESSMENT. 02 SATS AND SUPPLEMENTAL O2 DEMAND IMPROVED TONIGHT, PT CURRENTLY ON 3L VIA WV SATTING 94% . PT STATES THAT HE FEELS PRETTY GOOD TONIGHT. NO ACUTE EVENTS, NO NOTED CHANGES TO CONDITION, PT DENIES NEW OR WORSENING SYMPTOMS. PT RESTING IN BED AT A LOW POSITION WITH CALL LIGHT IN REACH.
[2023-12-18 04:41] LABS: BASOPHILS ABSOLUTE AUTO 0.01 K/mm3 (0.00-0.23); BASOPHILS PERCENT AUTO 0 % (0-2); EOSINOPHILS PERCENT AUTO 0 % (0-6); Hematocrit 46.1 % (37.0-53.0); Hemoglobin 15.4 g/dL (13.5-17.5); IMMATURE GRAN ABSOLUTE AUTO 0.11 K/mm3 (0.00-0.10); IMMATURE GRAN PERCENT AUTO 1 % (0-1); LYMPHOCYTES ABSOLUTE AUTO 0.36 K/mm3 (0.84-5.20); LYMPHOCYTES PERCENT AUTO 4 % (21-46); MONOCYTES ABSOLUTE AUTO 0.65 K/mm3 (0.16-1.47); MONOCYTES PERCENT AUTO 7 % (4-13); Mean Corpuscular HGB 31.2 pg (26.0-34.0); Mean Corpuscular HGB Conc 33.4 g/dL (31.5-36.5); Mean Corpuscular Volume 93 fL (80-100); Mean Platelet Volume 9.7 fL (9.1-12.4); NEUTROPHILS ABSOLUTE AUTO 7.84 K/mm3 (1.96-9.15); NEUTROPHILS PERCENT AUTO 88 % (41-73); Platelet Count 160 K/mm3 (150-400); RDW Coefficient Variation 12.4 % (11.7-14.2); RDW Standard Deviation 42.7 fL (35.1-46.3); Red Blood Cell Count 4.94 M/mm3 (4.30-5.90); White Blood Cell Count 8.97 K/mm3 (4.00-11.30)
[2023-12-18 04:59] LABS: Anion Gap Unable to Calculate mmol/L (6-16); Blood Urea Nitrogen 28 mg/dL (8-24); Bun/Creatinine Ratio 39.5 (12.0-20.0); CO2, Blood 39 mmol/L (21-32); Calcium, Blood 8.1 mg/dL (8.5-10.1); Chloride, Blood 99 mmol/L (98-108); Creatinine, Blood 0.71 mg/dL (0.60-1.20); Glomerular Filtration Rate 101 (60-); Glucose, Blood 132 mg/dL (70-99); Potassium, Blood 5.1 mmol/L (3.5-5.5); Sodium, Blood 137 mmol/L (136-145)
[2023-12-18 05:08] VITALS: BP 119/74
[2023-12-18 08:05] VITALS: BP 142/83
[2023-12-18 11:27] VITALS: BP 146/82
[2023-12-18 15:59] VITALS: BP 146/88
--- NOTE | 2023-12-18 17:15 | NUR ---
SHIFT SUMMARY PATIENT TITRATED TO 1-2 LITERS OXYGEN NASAL CANNULA, SATING 90-93%. COUGHING UP LARGE AMOUNTS OF YELLOW THICK MUCUS, STATING HE FEELS LIKE HE HAS BETTER CAPACITY AFTER GETTING THE MUCUS OUT. AMBULATING TO BATHROOM INDEPENDENTLY, WALKING SHORT DISTANCES IN [place] WITH RN THIS SHIFT. ECHO ORDERED, MOST LIKELY WILL HAPPEN TOMORROW. CARES ONGOING.
[2023-12-18 20:36] VITALS: BP 152/89
--- NOTE | 2023-12-19 04:16 | NUR ---
SHIFT SUMMARY CHELO WAS ALERT AND FULLY ORIENTED ON ASSESSMENT TONIGHT. HE HAS BEEN SATTING 88-94 ON 1-3 L VIA NC. PT STATES THAT HE FINALLY FEELS LIKE HE MIGHT BE READY TO GO HOME. INCENTIVE SPIROMETER VOLUMES IMPROVING. PT IND IN ROOM NO ACUTE EVENTS TONIGHT, NO NOTED CHANGES TO CONDITION. PT RESTING IN BED AT A LOW POSITION W/ CALL LIGHT IN REACH, NO CALLS FROM TELE TONIGHT SO FAR.
--- NOTE | 2023-12-19 04:17 | NUR ---
SHIFT SUMMARY CHALO WAS ALERT AND ORIENTED X 3-4 ON ASSESSMENT. PT CONDITION IS UNCHANGED FROM PREVIOUS NIGHT, EXCEPT THAT THE PT HAS NOT HAD ANY EMESIS TONIGHT. PT STILL ON CBI, OUTPUTTING RED URINE. BOWEL CARE GIVEN. NO ACUTE EVENTS TONIGHT NO NOTED CHANGES TO CONDITION. PT RESTING IN BED AT A LOW POSITION WITH CALL LIGHT IN REACH.
[2023-12-19 05:04] LABS: BASOPHILS ABSOLUTE AUTO 0.03 K/mm3 (0.00-0.23); BASOPHILS PERCENT AUTO 0 % (0-2); EOSINOPHILS ABSOLUTE AUTO 0.02 K/mm3 (0.00-0.68); EOSINOPHILS PERCENT AUTO 0 % (0-6); Hematocrit 51.5 % (37.0-53.0); Hemoglobin 17.2 g/dL (13.5-17.5); IMMATURE GRAN ABSOLUTE AUTO 0.11 K/mm3 (0.00-0.10); IMMATURE GRAN PERCENT AUTO 1 % (0-1); LYMPHOCYTES PERCENT AUTO 18 % (21-46); MONOCYTES ABSOLUTE AUTO 0.93 K/mm3 (0.16-1.47); MONOCYTES PERCENT AUTO 12 % (4-13); Mean Corpuscular HGB 31.2 pg (26.0-34.0); Mean Corpuscular HGB Conc 33.4 g/dL (31.5-36.5); Mean Corpuscular Volume 93 fL (80-100); Mean Platelet Volume 9.9 fL (9.1-12.4); NEUTROPHILS PERCENT AUTO 68 % (41-73); Platelet Count 150 K/mm3 (150-400); RDW Coefficient Variation 12.2 % (11.7-14.2); RDW Standard Deviation 42.5 fL (35.1-46.3); Red Blood Cell Count 5.52 M/mm3 (4.30-5.90); White Blood Cell Count 7.79 K/mm3 (4.00-11.30)
[2023-12-19 06:06] LABS: Calcium, Blood 8.7 mg/dL (8.5-10.1); Creatinine, Blood 0.85 mg/dL (0.60-1.20); Potassium, Blood 4.5 mmol/L (3.5-5.5)
[2023-12-19 07:18] VITALS: BP 113/79
--- NOTE | 2023-12-19 07:45 | NUR ---
arm band pt refusing arm band. Educated about protocol. HE still refused. Care ongoing.
[2023-12-19 15:23] VITALS: BP 144/88
--- NOTE | 2023-12-19 16:41 | NUR ---
NOTE PT WATCHING TV. HE FREQUNRTLY PLACES THE NASEL CANNULA UNDER HIS CHIN. FACE MAINTAINS A DUSKY HUE. COLOR DOES NOT IMPROVE WITH HIGHER SPO2. VOICE CLEAR AND STRONG. NO COUGH. CONT BIOX VARIES. SAT 86% RA. 93% ON 2L N/C. GOOD APPETITE. DENIES DISCOMFORT. UP AD WENDIE IN ROOM. HOME O2 EVAL DONE. CARE ONGOING.
[2023-12-19 18:01] LABS: Base Excess Venous 17.8 mmol/L; Bicarbonate Venous 36.8 mmol/L (24.0-30.0); PCO2 Venous 64.9 mmHg (38-42); pH Blood Venous 7.42 (7.34-7.37)
[2023-12-19 19:23] VITALS: BP 106/75
--- NOTE | 2023-12-20 04:17 | NUR ---
SHIFT SUMMARY PATIENT HAD NO ACUTE CHANGES. AXOX 4 AND INDEPENDENT IN ROOM. ON 2L O2 NC STATING 90-95% ON CONTINUOUS PULSE OXIMETRY. VSS/AFEBRILE. DENIES CHEST PAIN AND N/V. TELE MONITOR ST 100. IV ABX INFUSED. SLEPT MORE THE SECOND PART OF THE SHIFT. CALL LIGHT IN REACH. BED IN LOWEST POSITION. WILL CONTINUE TO MONITOR UNTIL DAY SHIFT NURSE ASSUMES CARE.
[2023-12-20 04:33] VITALS: BP 109/56
[2023-12-20 07:23] VITALS: BP 136/89
[2023-12-20] MEDS ORDERED: Vitamin D1000 UNI1 PO (13:33)
[2023-12-20] MEDS ORDERED: DILT120 PO (13:33)
[2023-12-20] MEDS ORDERED: ASPI81CH PO (13:33)
--- NOTE | 2023-12-20 14:30 | NUR ---
SHIFT SUMMARY AND DISCHARGE PATIENT DISCHARGED HOME. PATIENT ALERT AND INDEPENDENT IN THE ROOM. PATIENT RESISTANT WITH FOLLOWING PROCESS. PATIENT HAS HOME MEDS AT BEDSIDE AND REFUSES TO ALLOW THEM TO BE LOCKED UP. PROVIDER AWARE AND APPROVED PROCESS. PATIENT QUESTIONING PROCESSES. PATIENT STATES THAT HE WILL NOT WEAR A BIPAP/CPAP. 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 DISCHARGE INSTRUCTIONS REVIEWED WITH PATIENT. IV DC'D. BELONGINGS SENT HOME WITH PATIENT. ROOM CHECK DONE BEFORE PATIENT DEPARTED. PATIENT STATES THAT HE IS DRIVING HIMSELF HOME.
== END 2023-12-20 15:39 | disposition home or self-care (01) | DRG 189 ==
LOC: ER 13:51 → MEDS 20:18
PROVIDERS: Family Medicine; Hospitalist; Internal Medicine; Nurse Practitioner Acute Care; Physician Assistant; ADMIT Student in an Organized Health Care Education/Training Program
DX: J96.01 Acute respiratory failure with hypoxia (principal); J44.1 Chronic obstructive pulmonary disease with (acute) exacerbation; B37.0 Candidal stomatitis; F17.210 Nicotine dependence, cigarettes, uncomplicated; I48.0 Paroxysmal atrial fibrillation; I10 Essential (primary) hypertension; N40.0 Benign prostatic hyperplasia without lower urinary tract symptoms; E55.9 Vitamin D deficiency, unspecified; E87.5 Hyperkalemia; Z79.52 Long term (current) use of systemic steroids; Z79.51 Long term (current) use of inhaled steroids; Z11.52 Encounter for screening for COVID-19; Z28.21 Immunization not carried out because of patient refusal; Z79.899 Other long term (current) drug therapy
CPT/HCPCS: 0202U; 0241U; 36415; 71045; 71046; 71260; 80048; 80053; 82306; 82550; 82552; 82803; 83735; 83880; 84484; 85025; 85027; 85379; 87070; 87205; 93005; 93010; 93306; 94640; 94644; 94664; 94667; 94760; 94761; 94762; 96374-59; 96375-59; 99285-25; A9270; J0456; J0696; J1650; J1940; J1956; J2920; J2930; J7030; J7050; J7512; Q9967

== ENCOUNTER 2024-03-10 06:21 | Inpatient (IN) | payer MEDICARE ==
[~2024-03-10] VITALS: Ht 182.9 cm; Wt 99.2 kg
[~2024-03-10 06:21] MED LIST changes: +ASPI81CH PO; +DILT120 PO; +Vitamin D1000 UNI1 PO
[2024-03-10] MEDS ORDERED: Albuterol 2.5 MG/3 ML VIAL INH SCH (06:30)
[2024-03-10] MEDS ORDERED: MethylPREDNISolone Sod Succ 125 MG Vial IV ONE (06:30)
[2024-03-10 06:47] LABS: BASOPHILS ABSOLUTE AUTO 0.02 K/mm3 (0.00-0.23); BASOPHILS PERCENT AUTO 0 % (0-2); EOSINOPHILS PERCENT AUTO 0 % (0-6); Hematocrit 45.5 % (37.0-53.0); Hemoglobin 15.3 g/dL (13.5-17.5); IMMATURE GRAN ABSOLUTE AUTO 0.07 K/mm3 (0.00-0.10); IMMATURE GRAN PERCENT AUTO 1 % (0-1); LYMPHOCYTES ABSOLUTE AUTO 0.23 K/mm3 (0.84-5.20); LYMPHOCYTES PERCENT AUTO 5 % (21-46); MONOCYTES ABSOLUTE AUTO 0.84 K/mm3 (0.16-1.47); MONOCYTES PERCENT AUTO 17 % (4-13); Mean Corpuscular HGB Conc 33.6 g/dL (31.5-36.5); Mean Corpuscular Volume 92 fL (80-100); Mean Platelet Volume 10.2 fL (9.1-12.4); NEUTROPHILS ABSOLUTE AUTO 3.67 K/mm3 (1.96-9.15); NEUTROPHILS PERCENT AUTO 76 % (41-73); Platelet Count 137 K/mm3 (150-400); RDW Coefficient Variation 13.2 % (11.7-14.2); RDW Standard Deviation 44.3 fL (35.1-46.3); Red Blood Cell Count 4.93 M/mm3 (4.30-5.90); White Blood Cell Count 4.83 K/mm3 (4.00-11.30)
[2024-03-10 07:07] LABS: Albumin, Blood 3.4 g/dL (3.4-5.0); Albumin/Globulin Ratio 1.1 (0.8-1.8); Bilirubin, Total 0.5 mg/dL (0.1-1.0); Bun/Creatinine Ratio 14.1 (12.0-20.0); Calcium, Blood 8.3 mg/dL (8.5-10.1); Creatinine, Blood 0.85 mg/dL (0.60-1.20); Potassium, Blood 4.5 mmol/L (3.5-5.5); Total Protein, Blood 6.4 g/dL (6.4-8.2)
[2024-03-10] MEDS ORDERED: Azithromycin 500 MG in NS 250 ML IV ONE (07:20)
[2024-03-10] MEDS ORDERED: CefTRIAXone Sodium 1,000 MG in NS 100 ML IV ONE (07:20)
[2024-03-10 07:26] LABS: Influenza B, PCR NEGATIVE (NEGATIVE); Resp Syncytial Virus, PCR NEGATIVE (NEGATIVE); SARS-Cov-2 (COVID-19) PCR, MMC NEGATIVE (NEGATIVE)
[2024-03-10 07:47] LABS: Influenza A, PCR POSITIVE (NEGATIVE)
[2024-03-10 10:00] VITALS: BP 123/88
[2024-03-10] MEDS ORDERED: TRELEGY ELLIPT1 EAC1 INH (10:04)
[2024-03-10] MEDS ORDERED: Albuterol 2.5 MG/3 ML VIAL INH PRN (11:10)
[2024-03-10] MEDS ORDERED: Ipratropium/Albuterol SulF 2.5-0.5MG/3 ML Amp INH SCH (11:15)
[2024-03-10] MEDS ORDERED: NS 1,000 ML IV SCH (11:35)
[2024-03-10] MEDS ORDERED: Oseltamivir Phosphate 75 MG Cap PO SCH (12:00)
[2024-03-10] MEDS ORDERED: Ipratropium Bromide INH 0.02% 0.5 mg/2.5ML Vial INH SCH (12:20)
[2024-03-10] MEDS ORDERED: Mometasone/Formoterol MDI 200/5 mcg 13 GM INH SCH (12:20)
--- NOTE | 2024-03-10 12:29 | NUR ---
ADMISSION ARRIVAL NOTE: PT ARRIVED TO PCU 14 AT APROX 1000. PT IS A&OX4, COOPERATIVE AND APPROPRIATE WITH CARE. PT ORIENTED TO ROOM, CALL LIGHT AND UNIT ROUTINES, PT VERBALIZES UNDERSTANDING. SEE DOCUMENTED ADMISSION ASSESSMENT AND VS. PT IS ON O2 4L NC, SP02 93%, RR 20, DYSPNEA ON EXERTION NOTED PT IS ABLE TO AMBULATE TO RESTROOM AND TO THE BED W MINIMAL ASSISTANCE. PT PLACED ON CONTINUOUS SPO2 MONITORING. PT HAS NO COMPLAINTS AT THIS TIME OTHER THAN BEING HUNGRY AND SNACKS WERE GIVEN TO HIS SATISFACTION. NO OTHER NEEDS AT THIS TIME, PT IS RESTING QUIETLY IN BED, CALL LIGHT IN REACH AND BED IN LOWEST POSITION.
[2024-03-10] MEDS ORDERED: Benzonatate 100 MG Cap PO PRN (14:40)
[2024-03-10] MEDS ORDERED: TRELEGY INH SCH (15:45)
[2024-03-10] MEDS ORDERED: MethylPREDNISolone Sod Succ 40 MG VIAL IV SCH (16:00)
[2024-03-10 16:41] VITALS: BP 124/80
--- NOTE | 2024-03-10 17:33 | NUR ---
NO ACUTE CHANGES SINCE LAST NOTE. PT RECEIVED INCENTIVE SPIROMETER AND WAS ABLE TO DEMONSTRATE PROPER USE. SPUTUM SAMPLE SENT TO LAB PER MD ORDERS. 1L NS BOLUS INFUSED, SEE EMAR FOR DOCUMENTATION. AFTER BOLUS FINISHED PT WAS NOTED TO HAVE A VERY WET SOUNDING COUGH AND WAS HACKING HEAVILY. SPO2 DROPPED TO LOW 80s DURRING THIS EPISODE PT REMOVED HIS NC TO BLOW HIS NOSE. PT WAS ABLE TO RECOVER ON 6L AND THEN O2 WAS TITRATED BACK DOWN TO 4L W SPO2 IN THE LOW 90s. DR ASCENCIO NOTIFIED AND NEW ORDERS RECEIVED. PT HAS SLEPT ON AND OFF. NO OTHER COMPLAINTS. NO DESATURATIONS NOTED WHILE HE HAS BEEN SLEEPING. HR APPEARS TO HAVE TRENDED DOWN SINCE ADMINISTRATION OF FLUIDS. PT IS AMBULATORY AND ABLE TO WALK TO THE RESTROOM NEEDED, ABLE TO USE CALL LIGHT FOR NEEDS. IV TO RAC FOUND TO BE LEAKING, IT WAS REMOVED. NEW PIV TO LWR, FLUSHES WELL, WITH NO S/SX OF COMPLICATIONS AT THIS TIME. WILL CONTINUE TO MONITOR/TREAT AND GIVE REPORT TO NOC SHIFT RN.
[2024-03-10 19:40] VITALS: BP 153/91
[2024-03-10] MEDS ORDERED: GuaiFENesin 600 MG TabCR PO SCH (21:00)
[2024-03-10 23:57] VITALS: BP 129/84
[2024-03-11 03:37] VITALS: BP 124/84
[2024-03-11 04:31] LABS: BASOPHILS ABSOLUTE AUTO 0.01 K/mm3 (0.00-0.23); BASOPHILS PERCENT AUTO 0 % (0-2); EOSINOPHILS PERCENT AUTO 0 % (0-6); Hematocrit 45.2 % (37.0-53.0); Hemoglobin 14.8 g/dL (13.5-17.5); IMMATURE GRAN ABSOLUTE AUTO 0.03 K/mm3 (0.00-0.10); IMMATURE GRAN PERCENT AUTO 1 % (0-1); LYMPHOCYTES PERCENT AUTO 4 % (21-46); MONOCYTES PERCENT AUTO 8 % (4-13); Mean Corpuscular HGB Conc 32.7 g/dL (31.5-36.5); Mean Corpuscular Volume 95 fL (80-100); Mean Platelet Volume 10.4 fL (9.1-12.4); NEUTROPHILS ABSOLUTE AUTO 4.17 K/mm3 (1.96-9.15); NEUTROPHILS PERCENT AUTO 87 % (41-73); Platelet Count 132 K/mm3 (150-400); RDW Coefficient Variation 13.3 % (11.7-14.2); Red Blood Cell Count 4.77 M/mm3 (4.30-5.90); White Blood Cell Count 4.81 K/mm3 (4.00-11.30)
[2024-03-11 04:59] LABS: Albumin, Blood 2.9 g/dL (3.4-5.0); Bilirubin, Total 0.2 mg/dL (0.1-1.0); Bun/Creatinine Ratio 24.9 (12.0-20.0); Calcium, Blood 8.5 mg/dL (8.5-10.1); Creatinine, Blood 0.72 mg/dL (0.60-1.20); Potassium, Blood 4.8 mmol/L (3.5-5.5); Total Protein, Blood 5.9 g/dL (6.4-8.2)
--- NOTE | 2024-03-11 05:47 | NUR ---
1915 Assumed care of patient. Bedside report completed, shift plan of care reviewed with patient and all questions answered. Pt with uneventful shift and reports feeling slightly better than yesterday. Pt able to maintain O2 sat above 94% on 4lpm via NC, tolerating intervention well. Pt able to ambulate to BR ad chen with O2 in place. Pt denies signficant pain, reports cough has improved with addition of Mucinex. Please see full assessment for additional details. No further complaints or concerns at this time, will continue to monitor.
[2024-03-11 08:15] VITALS: BP 125/85
[2024-03-11] MEDS ORDERED: CefTRIAXone Sodium 1,000 MG in NS 100 ML IV SCH (09:00)
[2024-03-11] MEDS ORDERED: dilTIAZem HCL 120 MG CAP.CD PO SCH ×2 (09:00→23:00)
[2024-03-11] MEDS ORDERED: Azithromycin 500 MG in NS 250 ML IV SCH (09:00)
[2024-03-11] MEDS ORDERED: Enoxaparin 40 MG/0.4 ML SYR SC SCH (09:00)
[2024-03-11] MEDS ORDERED: Aspirin 81 MG Chew PO SCH (09:00)
[2024-03-11] MEDS ORDERED: Losartan Potassium 50 MG Tab PO SCH (09:00)
[2024-03-11] MEDS ORDERED: Cholecalciferol 1000 Unit Tablet (=25MCG) PO SCH (09:00)
--- NOTE | 2024-03-11 14:06 | NUR ---
REPORT GIVEN TO MEDICAL FLOOR RN TO ASSUME CARE. TRANSFERRED A/A/OX4, 2L 02 VIA DC, VSS, NO ACUTE DISTRESS.
[2024-03-11 15:12] VITALS: BP 137/85
[2024-03-11 15:47] VITALS: BP 130/79
--- NOTE | 2024-03-11 15:53 | NUR ---
TRANSFERRED NOTE: PATIENT ARRIVES TO ROOM VIA WHEELCHAIR AT 1305 FROM PCU RM 14. ASSUMED CARE OF PATIENT. PATIENT TRANSFERRED TO BED INDEPENDENTLY. SKIN ASSESSMENT c 2 RN'S VERIFIED COMPLETED. PATIENT ON DROPLET ISOLATION FOR INFLUENZA POSITIVE. PAATIENT ON 2L O2 VIA NC, LUNGS WHEEZY/CRACKLES TO AUSCULTATION. PATIENT DENIES CP/PRESSURE, SOB, DIZZINESS AND N/V. PATIENT ON TELE SR HR IN THE 90'S BPM. PATIENT ORIENTATED TO ROOM AND CALL SYTEM. PATIENT VERBALIZED UNDERSTANDING AND NO FURTHER QUESTIONS AT THIS TIME. AT 1543 RECEIVED A CALL FROM [employer] [facility] [employer], PER SUPPLY CHAIN GENERALIST PATIENT HAD 8 BEATS RUN OF V-TACH. ASSESS PATIENT, PATIENT REPORTS "FEELING FUNNY AND FLUSHED FOR A SECOND AND WENT AWAY." VITAL SIGNS TAKEN; TEMP 98.1, RES 18, HR 86 BPM, BP 139/79, O2 93% ON 2L VIA NC. NOTIFIED DR. ASCENCIO WITH THIS EPISODE. PER DR. ASCENCIO TO CONTINUE MONITOR PATIENT CONDITION T/O SHIFT. PATIENT RESTING IN BED AT THIS TIME c CALL LIGHT IN REACH.
[2024-03-11 21:51] VITALS: BP 143/94
--- NOTE | 2024-03-11 22:09 | NUR ---
NOTIFIED BY SLIP PRESSER PT SUSTAINING AFLUTTER IN 120'S FOR AN HOUR AND A HALF. CHECKED ON PT AND PT HAD NO C/O OF PALPITATIONS, SOB, CP. HOSPITALIST NOTIFIED AND ORDER FOR RATE CONTROL GOING TO BE ORDERED.
[2024-03-12] MEDS ORDERED: Metoprolol Tartrate 1 MG/ML 5 ML VIAL IV ONE (01:40)
--- NOTE | 2024-03-12 02:49 | NUR ---
HOSPITALIST ORDERED FIRST DOSE OF CARDIZEM PO 120 MG FOR RATE CONTROL. HOSPITALIST ALSO ORDERED MIDNIGHT DOSE OF SOLU MEDROL HELD DUE TO PT ALSO EXPERIENCING 8 BEAT RUN OF VTACH EARLIER IN THE DAY.
--- NOTE | 2024-03-12 02:51 | NUR ---
AFTER CARDIZEM GIVEN RATE DID NOT IMPROVE MUCH. HOSPITALIST NOTIFIED AND ONE TIME DOSE IV LOPRESSOR 5 MG ORDERED, WHICH DECREASED RATE TO 105-110 SUSTAINED.
[2024-03-12 04:35] VITALS: BP 118/76
--- NOTE | 2024-03-12 04:43 | NUR ---
NOTIFIED BY [facility] STATION MASTER THAT PT CONVERTED TO SINUS RHYTHM IN 80'S @ 3129.
[2024-03-12 05:18] LABS: Bun/Creatinine Ratio 24.4 (12.0-20.0); Calcium, Blood 8.5 mg/dL (8.5-10.1); Creatinine, Blood 0.82 mg/dL (0.60-1.20); Magnesium, Blood 2.1 mg/dL (1.6-2.4); Potassium, Blood 4.7 mmol/L (3.5-5.5)
--- NOTE | 2024-03-12 05:23 | NUR ---
SHIFT SUMMARY NOC PT A/O X 4. PLEASANT AND COOPERATIVE WITH CARE. PT WAS GOING IN AND OUT OF AFLUTTER SINUS TACH IN 118-122 BPM FOR AT LEAST TWO HOURS ACCORDING TO PARENT TRAINER ALONG WITH SOME ST ELEVATION. HOSPITALIST NOTIFIED AND FIRST DOSE OF PO CARDIZEM 120 MG GIVEN WITH LITTLE EFFECT. MIDNIGHT DOSE OF SOLU MEDROL HELD TO MD ORDER DUT TO PT EXPERIENCING 8 BEAT RUN OF VTACH EARLIER IN DAY, ALONG WITH CURRENT AFLUTTER/SINUS TACH. DOSE OF IV LOPRESSOR 5 MG GIVEN WHICH DECREASED HR TO 105-110 BPM. PT HAS HIGH ANXIETY AND KEEPS REPEATEDLY CHECKING TELE BOX ADDING TO INCREASED HR. MAGNESIUM AND BMP LABS ORDERED FOR AM. EKG PERFORMED WITH NO SIGNIFICANT CHANGES FROM EKG 03/10/24, NO AFLUTTER OR ST ELEVATIONS DETECTED. PT REMAINED ASYMPTOMATIC T/O. PT CONVERTED TO SINUS RHYTHM IN 80'S @ 0347. ON O2 2L/NC SPO2 >92%. ON DROPLET ISOLATION FOR INFLUENZA. PT CURRENTLY RESTING WITH BED IN LOWEST POSITION, AND CALL LIGHT WITHIN REACH.
[2024-03-12 07:10] LABS: BASOPHILS ABSOLUTE AUTO 0.01 K/mm3 (0.00-0.23); BASOPHILS PERCENT AUTO 0 % (0-2); EOSINOPHILS PERCENT AUTO 0 % (0-6); Hematocrit 43.8 % (37.0-53.0); Hemoglobin 14.6 g/dL (13.5-17.5); IMMATURE GRAN ABSOLUTE AUTO 0.03 K/mm3 (0.00-0.10); IMMATURE GRAN PERCENT AUTO 1 % (0-1); LYMPHOCYTES ABSOLUTE AUTO 0.46 K/mm3 (0.84-5.20); LYMPHOCYTES PERCENT AUTO 9 % (21-46); MONOCYTES ABSOLUTE AUTO 0.68 K/mm3 (0.16-1.47); MONOCYTES PERCENT AUTO 13 % (4-13); Mean Corpuscular HGB 31.3 pg (26.0-34.0); Mean Corpuscular HGB Conc 33.3 g/dL (31.5-36.5); Mean Corpuscular Volume 94 fL (80-100); NEUTROPHILS ABSOLUTE AUTO 4.26 K/mm3 (1.96-9.15); NEUTROPHILS PERCENT AUTO 78 % (41-73); Platelet Count 142 K/mm3 (150-400); RDW Coefficient Variation 13.2 % (11.7-14.2); RDW Standard Deviation 45.5 fL (35.1-46.3); Red Blood Cell Count 4.67 M/mm3 (4.30-5.90); White Blood Cell Count 5.44 K/mm3 (4.00-11.30)
[2024-03-12 07:26] VITALS: BP 121/87
[2024-03-12 08:09] LABS: BASOPHILS PERCENT MAN 0 % (0-2); EOSINOPHILS PERCENT MAN 0 % (0-6); LYMPHOCYTES ABSOLUTE MAN 0.48 K/mm3 (0.84-5.20); LYMPHOCYTES PERCENT MAN 9 % (21-46); MONOCYTES ABSOLUTE MAN 0.48 K/mm3 (0.16-1.47); MONOCYTES PERCENT MAN 9 % (4-13); NEUTROPHILS ABSOLUTE MAN 4.46 K/mm3 (1.96-9.15); SEG NEUTROPHILS PERCENT MAN 82 % (41-73); TOTAL CELLS COUNTED 100
[2024-03-12 14:52] VITALS: BP 123/83
[2024-03-12] MEDS ORDERED: THEO300ERC PO (16:18)
--- NOTE | 2024-03-12 17:05 | NUR ---
REPORT RECEIVED VERIFIED A/O X4 VSS, BREATHING UNDER CONTROL AND STATES HE FEELS BETTER, GOOD ENOUGHT TO GO HOME. PT STILL ON ISOLATION AND ON O2, POSSIBLY NEEDING O2 EVAL. CALL APPROPRIATLY AND IS INDEPENDANT IN ROOM
[2024-03-12 20:16] VITALS: BP 119/75
[2024-03-12] MEDS ORDERED: Ciprofloxacin 500 MG Tab PO SCH (21:00)
[2024-03-12] MEDS ORDERED: Albuterol HFA200 ACT/6.7 GM INH INH PRN (22:50)
[2024-03-13 05:42] VITALS: BP 133/85
--- NOTE | 2024-03-13 06:51 | NUR ---
PAINT BRUSH MAKER SUMMARY NO ACUTE CHANGES. PT A/OX4. ABLE TO MAKE NEEDS KNOWN AND ADVOCATE FOR SELF. PT CALL LIGHT IN REACH.
[2024-03-13 07:27] VITALS: BP 140/92
[2024-03-13] MEDS ORDERED: PredniSONE 20 MG Tab PO SCH (09:00)
--- NOTE | 2024-03-13 12:46 | NUR ---
REPORT RECEIVED VERIFIED PT DOING WELL TODAY WANTS TO GO HOME, O2 STILL AROUND 89 ON RM AIR BUT HAS O2 AT HOME. AWAITING DR SHELDON FOR DC ORDERS.
[2024-03-13] MEDS ORDERED: GUAI600T33 PO (13:23)
[2024-03-13] MEDS ORDERED: OSEL75CA PO (13:23)
[2024-03-13] MEDS ORDERED: DELTASONE20 MG PO (13:28)
[2024-03-13] MEDS ORDERED: SULTRIDS PO (13:28)
== END 2024-03-13 13:50 | disposition home or self-care (01) | DRG 871 ==
LOC: ER 06:21 → MEDS 08:36 → PCU 08:36 → MEDS 03-11 12:58
PROVIDERS: Emergency Medicine; Student in an Organized Health Care Education/Training Program; ADMIT Internal Medicine
DX: A41.89 Other specified sepsis (principal); J10.01 Influenza due to other identified influenza virus with the same other identified influenza virus pneumonia; J15.69 Pneumonia due to other Gram-negative bacteria; J96.01 Acute respiratory failure with hypoxia; J10.08 Influenza due to other identified influenza virus with other specified pneumonia; J44.1 Chronic obstructive pulmonary disease with (acute) exacerbation; J44.0 Chronic obstructive pulmonary disease with (acute) lower respiratory infection; E87.1 Hypo-osmolality and hyponatremia; I48.0 Paroxysmal atrial fibrillation; I10 Essential (primary) hypertension; F17.200 Nicotine dependence, unspecified, uncomplicated; D69.6 Thrombocytopenia, unspecified; N40.0 Benign prostatic hyperplasia without lower urinary tract symptoms; E55.9 Vitamin D deficiency, unspecified; Z96.651 Presence of right artificial knee joint; Z88.8 Allergy status to other drugs, medicaments and biological substances; Z79.51 Long term (current) use of inhaled steroids; Z79.82 Long term (current) use of aspirin
CPT/HCPCS: 0241U; 36415; 71045; 80048; 80053; 83605; 83735; 84145; 84484; 85025; 87040; 87070; 87077; 87186; 87205; 93005; 93010; 94640; 94644; 94664; 94760; 94762; 96365; 96366; 96375; 99285-25; A9270; J0456; J0696; J1650; J2920; J2930; J7030; J7050; J7512

== ENCOUNTER 2024-10-15 07:18 | Day surgery (SDC) | payer MEDICARE, OTHER ==
[~2024-10-15] VITALS: Ht 182.9 cm; Wt 98.6 kg
[~2024-10-15 07:18] MED LIST changes: +DELTASONE20 MG PO; +Lactated Ringer's 1,000 ML IV SCH; +OSEL75CA PO; +SULTRIDS PO; +THEO300ERC PO; +TRELEGY ELLIPT1 EAC1 INH; +Vitamin B Comple1 EA PO
[2024-10-15] MEDS ORDERED: MULTI-VITAMIN1 EAC2 PO (08:07)
[2024-10-15] MEDS ORDERED: VIT D3-VIT K21 EACH PO (08:08)
[2024-10-15 08:27] VITALS: BP 154/100
--- NOTE | 2024-10-15 08:34 | NUR ---
Ambulatory in Day Surgery History, Chart, Medications and Allergies reviewed before start of procedure.Lungs with scattered wz t/o. Pt utilized his rescue inhaler x 2 puffs. Sats >90% on ra. Occasional, moist, cough-currently non-productive.Npo status confirmed. Colon prep confirmed. Ride home also confirmed.
[2024-10-15] MEDS ORDERED: propofoL 60 ML IV ONE (08:48)
--- NOTE | 2024-10-15 08:56 | NUR ---
10/15/24 0856 Leigha Jarquin MONITOR INTACT WITH CONTINUOUS PULSE OXIMETRY, CONTINUOUS END TITAL CO2, AND INTERMITTENT BLOOD PRESSURE.
[2024-10-15 09:25] VITALS: BP 117/73
[2024-10-15 09:35] VITALS: BP 123/79
--- NOTE | 2024-10-15 09:48 | NUR ---
DISCHARGE PT A&OX4/VSS/RA/TALKING, DENIES PAIN, DENIES NAUSEA, DENAE PO H20, IV DC'D, DC INS PROVIDED, PT REP UNDERSTANDING THOSE INSTRUCTIONS, LEFT VIA WC WITH DC VOL TO GO HOME WITH POSSESSIONS AND COPY DC INS.
== END 2024-10-15 23:00 | disposition home or self-care (01) ==
LOC: ORSCMMR 07:18 → ORD 09:00 → ORSCMMR 23:00
PROVIDERS: Internal Medicine Gastroenterology
PROC: 0DBN8ZX Excision of Sigmoid Colon, Via Natural or Artificial Opening Endoscopic, Diagnostic (ICD-10-PCS; principal; 2024-10-15 09:00)
DX: Z12.11 Encounter for screening for malignant neoplasm of colon (principal); D12.5 Benign neoplasm of sigmoid colon; K64.4 Residual hemorrhoidal skin tags; Z86.0102 Personal history of hyperplastic colon polyps; J44.9 Chronic obstructive pulmonary disease, unspecified; I48.0 Paroxysmal atrial fibrillation; I10 Essential (primary) hypertension; Z79.82 Long term (current) use of aspirin; Z79.899 Other long term (current) drug therapy; F17.210 Nicotine dependence, cigarettes, uncomplicated
CPT/HCPCS: 88305; J2704; J7120

== ENCOUNTER 2025-09-14 13:24 | Inpatient (IN) | payer MEDICARE, OTHER ==
[~2025-09-14] VITALS: Ht 152.4 cm; Wt 92.8 kg
[~2025-09-14 13:24] MED LIST changes: -Lactated Ringer's 1,000 ML IV SCH; +MULTI-VITAMIN1 EAC2 PO; +TADA10TA PO; -TADALAFIL5 M1 PO; +VITAMIN D5000 UNIT PO
[2025-09-14] MEDS ORDERED: Ipratropium/Albuterol SulF 2.5-0.5MG/3 ML Amp INH ONE (13:50)
[2025-09-14] MEDS ORDERED: Albuterol 2.5 MG/3 ML VIAL INH SCH ×2 (13:50→15:10)
[2025-09-14] MEDS ORDERED: DILT120 PO (14:15)
[2025-09-14] MEDS ORDERED: LOSA25 PO (14:16)
[2025-09-14 14:22] LABS: Alanine Aminotransfer (ALT/SGP 31.0 U/L (12-78); Albumin, Blood 3.7 g/dL (3.4-5.0); Albumin/Globulin Ratio 1.4 (0.8-1.8); Anion Gap 6.0 mmol/L (3-11); Aspartate Aminotrans (AST/SGOT 20.0 U/L (12-37); Bilirubin, Total 1.2 mg/dL (0.1-1.0); Blood Urea Nitrogen 10.0 mg/dL (8-24); CO2, Blood 36.0 mmol/L (21-32); Calcium, Blood 9.2 mg/dL (8.5-10.1); Chloride, Blood 98.0 mmol/L (98-108); Creatinine, Blood 0.66 mg/dL (0.60-1.20); Globulin, Blood 2.7 g/dL (2.2-4.0); Glucose, Blood 114.0 mg/dL (70-99); Potassium, Blood 4.5 mmol/L (3.5-5.5); Sodium, Blood 135.0 mmol/L (136-145); Total Protein, Blood 6.4 g/dL (6.4-8.2)
[2025-09-14 14:49] LABS: BASOPHILS ABSOLUTE AUTO 0.06 K/mm3 (0.00-0.23); BASOPHILS PERCENT AUTO 1 % (0-2); EOSINOPHILS ABSOLUTE AUTO 0.17 K/mm3 (0.00-0.68); EOSINOPHILS PERCENT AUTO 3 % (0-6); Hematocrit 49.5 % (37.0-53.0); Hemoglobin 16.6 g/dL (13.5-17.5); IMMATURE GRAN ABSOLUTE AUTO 0.06 K/mm3 (0.00-0.10); IMMATURE GRAN PERCENT AUTO 1 % (0-1); LYMPHOCYTES ABSOLUTE AUTO 0.67 K/mm3 (0.84-5.20); LYMPHOCYTES PERCENT AUTO 12 % (21-46); MONOCYTES ABSOLUTE AUTO 0.54 K/mm3 (0.16-1.47); MONOCYTES PERCENT AUTO 9 % (4-13); Mean Corpuscular HGB Conc 33.5 g/dL (31.5-36.5); Mean Corpuscular Volume 98 fL (80-100); NEUTROPHILS ABSOLUTE AUTO 4.34 K/mm3 (1.96-9.15); NEUTROPHILS PERCENT AUTO 74 % (41-73); NRBC ABSOLUTE 0.00 K/mm3 (0.00-0.02); NRBC Auto 0.0 /100 WBC (0.0-0.2); Platelet Count 134 K/mm3 (150-400); RDW Coefficient Variation 14.5 % (11.7-14.2); RDW Standard Deviation 52.4 fL (35.1-46.3)
[2025-09-14] MEDS ORDERED: CefTRIAXone Sodium 1,000 MG in NS 50 ML IV ONE (14:50)
[2025-09-14] MEDS ORDERED: Formoterol/Mometasone MDI 5/200 mcg 13 GM INH SCH (15:30)
[2025-09-14] MEDS ORDERED: Ipratropium Bromide INH 0.02% 0.5 mg/2.5ML Vial INH SCH (15:30)
[2025-09-14 15:57] LABS: pH Blood Venous 7.34 (7.34-7.37)
[2025-09-14] MEDS ORDERED: Metoclopramide HCl 5MG / ML 2ML Vial IV PRN (17:40)
[2025-09-14] MEDS ORDERED: Ipratropium/Albuterol SulF 2.5-0.5MG/3 ML Amp INH SCH (17:40)
[2025-09-14] MEDS ORDERED: Ondansetron HCl 2 MG / ML 2ML Vial IV PRN (17:45)
[2025-09-14] MEDS ORDERED: Guaifenesin/Dextromethorphan Syrup 5 ML UDC PO PRN (17:55)
[2025-09-14 18:44] VITALS: BP 142/84
[2025-09-14 18:50] LABS: Influenza A, PCR NEGATIVE (NEGATIVE); Influenza B, PCR NEGATIVE (NEGATIVE); Resp Syncytial Virus, PCR NEGATIVE (NEGATIVE); SARS-Cov-2 (COVID-19) PCR, MMC NEGATIVE (NEGATIVE)
--- NOTE | 2025-09-14 18:55 | NUR ---
ADMISSION NOTE: PATIENT ARRIVES TO ROOM VIA GURNEY AT 1837 FROM ER FOR DX'S OF SEPSIS, HYPOXIC RESP FAILURE, COPD EXACERBATION. PATIENT TRANSFERRED TO BED c SBA. PATIENT ORIENTATED TO ROOM AND CALL SYSTEM. ADMISSION VITALS TAKEN. PATIENT CURRENTLY ON 4L O2 NC, SATTING 91%. ADMISSION AND [facility]REC COMPLETED. PATIENT HAS PIV TO BILAT FOREARM, SL. BED IN LOWEST POSITION. CALL LIGHT IN REACH. BEDSIDE REPORTS GIVEN TO EDGARD EDDY NURSE.
[2025-09-14 19:40] VITALS: BP 166/91
[2025-09-14] MEDS ORDERED: Albuterol 2.5 MG/3 ML VIAL INH PRN (20:15)
[2025-09-14 23:52] VITALS: BP 124/65
[2025-09-15 03:48] VITALS: BP 146/79
[2025-09-15 05:31] LABS: BASOPHILS ABSOLUTE AUTO 0.01 K/mm3 (0.00-0.23); BASOPHILS PERCENT AUTO 0 % (0-2); EOSINOPHILS ABSOLUTE AUTO 0.00 K/mm3 (0.00-0.68); EOSINOPHILS PERCENT AUTO 0 % (0-6); Hematocrit 46.9 % (37.0-53.0); Hemoglobin 15.3 g/dL (13.5-17.5); IMMATURE GRAN ABSOLUTE AUTO 0.04 K/mm3 (0.00-0.10); IMMATURE GRAN PERCENT AUTO 1 % (0-1); LYMPHOCYTES ABSOLUTE AUTO 0.17 K/mm3 (0.84-5.20); LYMPHOCYTES PERCENT AUTO 5 % (21-46); MONOCYTES ABSOLUTE AUTO 0.10 K/mm3 (0.16-1.47); MONOCYTES PERCENT AUTO 3 % (4-13); Mean Corpuscular HGB Conc 32.6 g/dL (31.5-36.5); Mean Corpuscular Volume 100 fL (80-100); NEUTROPHILS ABSOLUTE AUTO 3.47 K/mm3 (1.96-9.15); NEUTROPHILS PERCENT AUTO 92 % (41-73); NRBC ABSOLUTE 0.00 K/mm3 (0.00-0.02); NRBC Auto 0.0 /100 WBC (0.0-0.2); Platelet Count 119 K/mm3 (150-400); RDW Coefficient Variation 14.3 % (11.7-14.2); RDW Standard Deviation 52.6 fL (35.1-46.3)
[2025-09-15 05:53] LABS: Anion Gap 6.0 mmol/L (3-11); Blood Urea Nitrogen 14.0 mg/dL (8-24); CO2, Blood 34.0 mmol/L (21-32); Calcium, Blood 8.4 mg/dL (8.5-10.1); Chloride, Blood 100.0 mmol/L (98-108); Creatinine, Blood 0.62 mg/dL (0.60-1.20); Glucose, Blood 159.0 mg/dL (70-99); Potassium, Blood 4.6 mmol/L (3.5-5.5); Sodium, Blood 135.0 mmol/L (136-145)
--- NOTE | 2025-09-15 06:30 | NUR ---
SHIFT SUMMARY: Pt is admitted for sepsis and copd exacerbation and is a full code. Is alert and able to make needs known. ADLs have been SBA. denies pain or discomfort when asked. Tell noted sinus in the 90s with a bundle branch with no events. On 4 lpm of O2 via NC to maintain sop2 greater than 88%. About 0400 he went to the restroom when offered a longer NC he declined and took off the O2 to use the restroom stating i ll be ok. When returned to the bed and placed back on the O2 and biox SPO2 read 80%. O2 was raised to 7lpm to aid in recovery. Took about 5 min to raise from 80% to 88%. Requested respiratory to give PRN neb to help with breathing recovery.
[2025-09-15 07:34] VITALS: BP 135/79
[2025-09-15] MEDS ORDERED: Multivitamins 1 Tab PO SCH (09:00)
[2025-09-15] MEDS ORDERED: Enoxaparin 40 MG/0.4 ML SYR SC SCH (09:00)
[2025-09-15] MEDS ORDERED: ALBU90OI61 INH (11:01)
[2025-09-15] MEDS ORDERED: IPRAT-ALBUT 0.5-3 ML NEB (11:01)
[2025-09-15 11:24] VITALS: BP 146/82
[2025-09-15] MEDS ORDERED: NS 250 ML IV PRN (15:40)
[2025-09-15] MEDS ORDERED: CefTRIAXone Sodium 1,000 MG in NS 100 ML IV SCH (16:00)
[2025-09-15 17:09] VITALS: BP 144/86
--- NOTE | 2025-09-15 17:51 | NUR ---
SHIFT SUMMARY PT A&OX4, VSS, ON 4L O2 NC, TOLERATING PO, VOIDING, AND DENIED PAIN. PT CONT TO BE SOB W/ ACTIVITY AND REQUIRES AT LEAST 5 MIN TO RECOVER TO NORMAL SATS. BLOOD AND SPUTUM CULUTURES PENDING. IV ABX INFUSED. NO OTHER ACUTE CHANGES. CALL LIGHT WITHIN REACH AND PT ABLE TO MAKE NEEDS KNOWN.
[2025-09-15 19:20] VITALS: BP 126/79
[2025-09-15 23:59] VITALS: BP 120/68
--- NOTE | 2025-09-16 03:44 | NUR ---
SHIFT SUMMARY: PT AOX4. CURRENTLY ON 4L O2, SpO2 93%. PT LUNG SOUNDS ARE WHEEZES THROUGHOUT. PT DENIES INCREASED DYSPNEA, CP. CALL LIGHT IS WITHIN REACH. BED IS LOW AND LOCKED.
[2025-09-16 04:34] VITALS: BP 125/69
[2025-09-16 07:49] VITALS: BP 144/85
[2025-09-16 11:54] LABS: BASOPHILS ABSOLUTE AUTO 0.02 K/mm3 (0.00-0.23); BASOPHILS PERCENT AUTO 0 % (0-2); EOSINOPHILS ABSOLUTE AUTO 0.00 K/mm3 (0.00-0.68); EOSINOPHILS PERCENT AUTO 0 % (0-6); Hematocrit 52.1 % (37.0-53.0); Hemoglobin 17.0 g/dL (13.5-17.5); IMMATURE GRAN ABSOLUTE AUTO 0.07 K/mm3 (0.00-0.10); IMMATURE GRAN PERCENT AUTO 1 % (0-1); LYMPHOCYTES ABSOLUTE AUTO 0.33 K/mm3 (0.84-5.20); LYMPHOCYTES PERCENT AUTO 3 % (21-46); MONOCYTES ABSOLUTE AUTO 1.12 K/mm3 (0.16-1.47); MONOCYTES PERCENT AUTO 9 % (4-13); Mean Corpuscular HGB Conc 32.6 g/dL (31.5-36.5); Mean Corpuscular Volume 101 fL (80-100); NEUTROPHILS ABSOLUTE AUTO 11.31 K/mm3 (1.96-9.15); NEUTROPHILS PERCENT AUTO 88 % (41-73); NRBC ABSOLUTE 0.00 K/mm3 (0.00-0.02); NRBC Auto 0.0 /100 WBC (0.0-0.2); Platelet Count 159 K/mm3 (150-400); RDW Coefficient Variation 14.4 % (11.7-14.2); RDW Standard Deviation 53.1 fL (35.1-46.3)
[2025-09-16 11:58] VITALS: BP 151/90
--- NOTE | 2025-09-16 12:32 | NUR ---
NOTE PT ON TELE, TELE REPORTED "ST ELEVATION." PT REPORTS NO CHEST PAIN. DR. RATLIFF NOTIFIED, DR. RATLIFF ORDERED EKG.
[2025-09-16 13:15] LABS: Alanine Aminotransfer (ALT/SGP 35.0 U/L (12-78); Albumin, Blood 3.7 g/dL (3.4-5.0); Albumin/Globulin Ratio 1.2 (0.8-1.8); Anion Gap 9.0 mmol/L (3-11); Aspartate Aminotrans (AST/SGOT 25.0 U/L (12-37); Bilirubin, Total 0.5 mg/dL (0.1-1.0); Blood Urea Nitrogen 19.0 mg/dL (8-24); CO2, Blood 34.0 mmol/L (21-32); Calcium, Blood 9.0 mg/dL (8.5-10.1); Chloride, Blood 96.0 mmol/L (98-108); Creatinine, Blood 0.56 mg/dL (0.60-1.20); Globulin, Blood 3.1 g/dL (2.2-4.0); Glucose, Blood 115.0 mg/dL (70-99); Magnesium, Blood 2.4 mg/dL (1.6-2.4); Potassium, Blood 4.9 mmol/L (3.5-5.5); Sodium, Blood 134.0 mmol/L (136-145); Total Protein, Blood 6.8 g/dL (6.4-8.2)
--- NOTE | 2025-09-16 13:18 | NUR ---
NOTE EKG COMPLETED. REPORTED TO DR. RATLIFF, RESULTS IN CHART. NO NEW ORDERS AT THIS TIME.
--- NOTE | 2025-09-16 14:45 | NUR ---
NOTE DR. RATLIFF CAME BY TO LOOK AT EKG RESULTS. DR. RATLIFF DID NOT PUT NEW ORDERS IN AT THIS TIME. PT REMAINS ON TELE.
[2025-09-16 15:34] VITALS: BP 126/82
[2025-09-16] MEDS ORDERED: Guaifenesin/Dextromethorphan Syrup 5 ML UDC PO PRN (15:55)
[2025-09-16 19:23] VITALS: BP 139/75
--- NOTE | 2025-09-16 19:57 | NUR ---
SHIFT SUMMARY PT A&OX4. PT ADMITTED DUE TO SEPSIS. HYPOXIC RESP FAILURE, COPD EXAC. PT ON CONT. PULSE OX. PT SPO2 IS 94% ON 3L OF O2. PT DESATS WITH AMBULATION, PT REPORTS SOB. PT WEARS 2-3 L OF O2 VIA N/C AT HOME PRN. PT ON TELE, (SEE PREVIOUS NOTE ABOUT REPORT) PT INDEPENDENT/SBA. PT EATS ADEQUATE. PT GETTING IV SOLUMEDERAL AND IV ANTIBIOTICS. INCENTIVE SPIROMETER AT BEDSIDE. RESPIRATORY CARE INVOLVED IN TREATMENT. PT GETS SCHEDULED NEB TREATMENTS. PT IN BED, BED LOCKED, BED IN LOWEST POSITION, CALL LIGHT IN REACH.
[2025-09-16 23:40] VITALS: BP 123/78
[2025-09-17] VITALS (7 sets, daily range): BP systolic 123–152; BP diastolic 59–94
--- NOTE | 2025-09-17 05:18 | NUR ---
SHIFT SUMMARY; AT 0300 RECEIVED REPORT FROM SHILA SANDOVAL, PATIENT SLEEPING, GIVEN SOLU-MED. TELE SR 90 WITH BBB.
[2025-09-17 11:50] LABS: BASOPHILS ABSOLUTE AUTO 0.01 K/mm3 (0.00-0.23); BASOPHILS PERCENT AUTO 0 % (0-2); EOSINOPHILS ABSOLUTE AUTO 0.00 K/mm3 (0.00-0.68); EOSINOPHILS PERCENT AUTO 0 % (0-6); Hematocrit 48.3 % (37.0-53.0); Hemoglobin 15.5 g/dL (13.5-17.5); IMMATURE GRAN ABSOLUTE AUTO 0.10 K/mm3 (0.00-0.10); IMMATURE GRAN PERCENT AUTO 1 % (0-1); LYMPHOCYTES ABSOLUTE AUTO 0.21 K/mm3 (0.84-5.20); LYMPHOCYTES PERCENT AUTO 2 % (21-46); MONOCYTES ABSOLUTE AUTO 1.04 K/mm3 (0.16-1.47); MONOCYTES PERCENT AUTO 9 % (4-13); Mean Corpuscular HGB Conc 32.1 g/dL (31.5-36.5); Mean Corpuscular Volume 100 fL (80-100); NEUTROPHILS ABSOLUTE AUTO 10.31 K/mm3 (1.96-9.15); NEUTROPHILS PERCENT AUTO 88 % (41-73); NRBC ABSOLUTE 0.00 K/mm3 (0.00-0.02); NRBC Auto 0.0 /100 WBC (0.0-0.2); Platelet Count 138 K/mm3 (150-400); RDW Coefficient Variation 14.1 % (11.7-14.2); RDW Standard Deviation 52.3 fL (35.1-46.3)
[2025-09-17 12:20] LABS: Alanine Aminotransfer (ALT/SGP 41.0 U/L (12-78); Albumin, Blood 3.0 g/dL (3.4-5.0); Albumin/Globulin Ratio 1.1 (0.8-1.8); Anion Gap 4.0 mmol/L (3-11); Aspartate Aminotrans (AST/SGOT 25.0 U/L (12-37); Bilirubin, Total 0.4 mg/dL (0.1-1.0); Blood Urea Nitrogen 18.0 mg/dL (8-24); CO2, Blood 38.0 mmol/L (21-32); Calcium, Blood 8.9 mg/dL (8.5-10.1); Chloride, Blood 96.0 mmol/L (98-108); Creatinine, Blood 0.64 mg/dL (0.60-1.20); Globulin, Blood 2.8 g/dL (2.2-4.0); Glucose, Blood 117.0 mg/dL (70-99); Magnesium, Blood 2.5 mg/dL (1.6-2.4); Potassium, Blood 4.7 mmol/L (3.5-5.5); Sodium, Blood 133.0 mmol/L (136-145); Total Protein, Blood 5.8 g/dL (6.4-8.2)
[2025-09-17] MEDS ORDERED: Guaifenesin/Dextromethorphan Syrup 5 ML UDC PO ONE (13:00)
[2025-09-17] MEDS ORDERED: GuaiFENesin 100 MG/5 ML 5ML UDC PO ONE (13:20)
[2025-09-17] MEDS ORDERED: Saline Nasal Spray 45 ML PRN (14:35)
--- NOTE | 2025-09-17 16:59 | NUR ---
SHIFT SUMMARY PT A&OX4. PT ADMITTED DUE TO SEPSIS. HYPOXIC RESP FAILURE, COPD EXAC. PT REPORTS NO CHEST PAIN/GENERALIZED PAIN. PT ON CONT. PULSE OX. PT SPO2 IS 95% ON 3L OF O2. PT DESATS WITH AMBULATION, WITH AMBULATION THIS RN NOTED PT SATS AT 80%, RECOVERED SOON AFTER. PT REPORTS SOB. PT WEARS 2-3 L OF O2 VIA N/C AT HOME PRN. PT ON TELE, NO TELE REPORTS NOTED THIS SHIFT. PT INDEPENDENT/SBA. PT EATS ADEQUATE. PT GETTING IV SOLUMEDERAL AND IV ANTIBIOTICS. DR. RATLIFF ORDERED IV AZITHROMYCIN AND A ONE TIME INCREASED DOSE OF GUAFENISON IR. INCENTIVE SPIROMETER AT BEDSIDE. RESPIRATORY CARE INVOLVED IN TREATMENT. PT GETS SCHEDULED NEB TREATMENTS. SALINE SPRAY ORDERED PRN FOR DRY NOSE. SALINE SPRAY IN PT DRAWER IF NEEDED. PT IN BED, BED LOCKED, BED IN LOWEST POSITION, CALL LIGHT IN REACH.
--- NOTE | 2025-09-18 01:48 | NUR ---
PLASTIC PARTS FABRICATOR TRIMMER REPORTED 8 BEAT RUN OF ABRAN. PT SLEEPING W/ NO SS. THIS RN CALLED DR BUSTILLOS TO REPORT. NO NEW ORDERS AT THIS TIME.
[2025-09-18 04:40] VITALS: BP 123/69
--- NOTE | 2025-09-18 05:22 | NUR ---
SHIFT SUMMARY PATIENT A/O X4- SBA DUE TO SOB. CURRENTLY ON 3L VIA NC WITH SATS ABOVE 90%, WHEN AMBULATING PATIENT DROPS DOWN TO 80'S BUT RECOVERS ONCE HE IS BACK IN BED. MINERALOGY PROFESSOR REPORTED BIGEMENY AND PVC'S, PROVIDER NOTIFIED W/ NO NEW ORDERS. PT SLEEPING W/ NO REPORT OF CHEST PAIN/PRESSURE. VITAL SIGNS STABLE. VOIDING WELL AND TOLERATING ORAL INTAKE. NO ACUTE CHANGES. PT RESTING IN BED WITH BED IN LOWEST POSITION AND CALL LIGHT IN REACH.
[2025-09-18 07:40] VITALS: BP 157/89
[2025-09-18 11:34] LABS: BASOPHILS ABSOLUTE AUTO 0.01 K/mm3 (0.00-0.23); BASOPHILS PERCENT AUTO 0 % (0-2); EOSINOPHILS ABSOLUTE AUTO 0.00 K/mm3 (0.00-0.68); EOSINOPHILS PERCENT AUTO 0 % (0-6); Hematocrit 49.5 % (37.0-53.0); Hemoglobin 15.8 g/dL (13.5-17.5); IMMATURE GRAN ABSOLUTE AUTO 0.07 K/mm3 (0.00-0.10); IMMATURE GRAN PERCENT AUTO 1 % (0-1); LYMPHOCYTES ABSOLUTE AUTO 0.16 K/mm3 (0.84-5.20); LYMPHOCYTES PERCENT AUTO 2 % (21-46); MONOCYTES ABSOLUTE AUTO 0.84 K/mm3 (0.16-1.47); MONOCYTES PERCENT AUTO 9 % (4-13); Mean Corpuscular HGB Conc 31.9 g/dL (31.5-36.5); Mean Corpuscular Volume 99 fL (80-100); NEUTROPHILS ABSOLUTE AUTO 8.64 K/mm3 (1.96-9.15); NEUTROPHILS PERCENT AUTO 89 % (41-73); NRBC ABSOLUTE 0.00 K/mm3 (0.00-0.02); NRBC Auto 0.0 /100 WBC (0.0-0.2); Platelet Count 133 K/mm3 (150-400); RDW Coefficient Variation 14.1 % (11.7-14.2); RDW Standard Deviation 51.4 fL (35.1-46.3)
[2025-09-18] MEDS ORDERED: FUROSEMIDE20 MG PO (13:25)
[2025-09-18] MEDS ORDERED: AZIT250 PO (13:25)
[2025-09-18 14:15] LABS: Alanine Aminotransfer (ALT/SGP 42.0 U/L (12-78); Albumin, Blood 3.0 g/dL (3.4-5.0); Albumin/Globulin Ratio 1.2 (0.8-1.8); Anion Gap 5.0 mmol/L (3-11); Aspartate Aminotrans (AST/SGOT 25.0 U/L (12-37); Bilirubin, Total 0.6 mg/dL (0.1-1.0); Blood Urea Nitrogen 19.0 mg/dL (8-24); CO2, Blood 36.0 mmol/L (21-32); Calcium, Blood 8.7 mg/dL (8.5-10.1); Chloride, Blood 96.0 mmol/L (98-108); Creatinine, Blood 0.64 mg/dL (0.60-1.20); Globulin, Blood 2.6 g/dL (2.2-4.0); Glucose, Blood 121.0 mg/dL (70-99); Magnesium, Blood 2.4 mg/dL (1.6-2.4); Potassium, Blood 4.8 mmol/L (3.5-5.5); Sodium, Blood 132.0 mmol/L (136-145); Total Protein, Blood 5.6 g/dL (6.4-8.2)
--- NOTE | 2025-09-18 17:30 | NUR ---
SHIFT SUMMARY PT AOX4, COOPERATIVE, ABLE TO MAKE NEEDS KNOWN. PT IS SBA IN ROOM, ON 4L O2, ON CONT PULSE OX, PT DOES DESAT FAST WHEN NOT UTILIZING O2. PT TOLERATING MEDICATIONS. POSSIBLE DC 09/19/25. VERY IS VERY TALKATIVE WHICH PT REPORTS IS BASELINE. NO OTHER ACUTE EVENTS TOOK PLACE THIS SHIFT. BED IN LOWEST POSITION, CALL LIGHT WITHIN REACH.
[2025-09-18 17:33] VITALS: BP 138/87
[2025-09-18] MEDS ORDERED: GuaiFENesin 100 MG/5 ML 5ML UDC PO PRN (17:40)
[2025-09-18 21:10] VITALS: BP 144/80
[2025-09-19 00:45] VITALS: BP 137/73
--- NOTE | 2025-09-19 04:31 | NUR ---
SHIFT SUMMARY PATIENT A/O X4- SBA IN THE ROOM DUE TO SOB. RESPIRATORY CALLED TO PTS ROOM AT APPROX 2330 PT WAS REQUESTING BREATHING TREATMENT, PT STATE THAT HE HAS A "LARGE PLUG" THAT HE CAN'T COUGH UP. OXYGEN SATURATIONS AT THAT TIME WERE 83-85%, RESPIRATORY TURNED OXYGEN UP TO 7LPM AND PT WAS SATURATING 90-92%. ONCE BREATHING TREATMENT COMPLETE, OXYGEN TURNED BACK TO 4L AND OXYGEN SATURATION STAYED ABOVE 90%. NON PRODUCTIVE, CONTINUOUS COUGH. PT REPORTS VOIDING WELL AND TOLERATING PO INTAKE. VITAL SIGNS OTHERWISE STABLE. NO PAIN REPORTED. TELE ON WITH NO REPORTS OF EVENTS. BED IN LOWEST POSITION, CALL LIGHT IN REACH. WILL REPORT TO ONCOMING RN.
[2025-09-19 04:33] VITALS: BP 118/69
[2025-09-19 08:09] VITALS: BP 137/76
[2025-09-19 11:22] VITALS: BP 152/79
[2025-09-19 15:37] VITALS: BP 136/76
--- NOTE | 2025-09-19 19:31 | NUR ---
SHIFT SUMMARY PT A&OX4, VSS, NON-TELE, 4L NC O2. DESATS TO 80S WITH ACTIVITY OR COUGHING, RECOVERS QUICKLY. PT PLEASANT AND COOPERATIVE WITH CARE, PT ENCOURAGED TO USE FLUTTER VALVE, COMPLIANT WITH USE THROUGHOUT DAY. PT ABLE TO MAKE NEEDS KNOWN, CALL LIGHT IN REACH.
[2025-09-19 20:46] VITALS: BP 139/73
[2025-09-20 02:28] VITALS: BP 140/82
--- NOTE | 2025-09-20 05:23 | NUR ---
CORPORATE ASSOCIATE ATTORNEY SUMMARY NO ACUTE EVENTS. PT REMAINS ON 4LPM O2. PT UP FREQUENTLY TO THE BATHROOM T/O THE NIGHT. CONT PULSE OX IN PLACE. PT OXYGEN DESAT TO UPPER 80'S WITH MOVEMENT TO THE BATHROOM, QUICK RECOVERY. NOTED PT WILL TRIPOD AT TIMES TO RECOVER. PT ABLE TO MAKE NEEDS KNOWN. PT CALLING STAFF WHEN GETTING UP TO THE BATHROOM. CALL LIGHT ACCESSIBLE. CARE WILL CONTINUE UNTIL REPORT GIVEN TO ONCOMING NURSE.
[2025-09-20 07:03] LABS: BASOPHILS ABSOLUTE AUTO 0.01 K/mm3 (0.00-0.23); BASOPHILS PERCENT AUTO 0 % (0-2); EOSINOPHILS ABSOLUTE AUTO 0.00 K/mm3 (0.00-0.68); EOSINOPHILS PERCENT AUTO 0 % (0-6); Hematocrit 47.9 % (37.0-53.0); Hemoglobin 15.4 g/dL (13.5-17.5); IMMATURE GRAN ABSOLUTE AUTO 0.05 K/mm3 (0.00-0.10); IMMATURE GRAN PERCENT AUTO 1 % (0-1); LYMPHOCYTES ABSOLUTE AUTO 0.56 K/mm3 (0.84-5.20); LYMPHOCYTES PERCENT AUTO 11 % (21-46); MONOCYTES ABSOLUTE AUTO 0.64 K/mm3 (0.16-1.47); MONOCYTES PERCENT AUTO 13 % (4-13); Mean Corpuscular HGB Conc 32.2 g/dL (31.5-36.5); Mean Corpuscular Volume 99 fL (80-100); NEUTROPHILS ABSOLUTE AUTO 3.67 K/mm3 (1.96-9.15); NEUTROPHILS PERCENT AUTO 74 % (41-73); NRBC ABSOLUTE 0.00 K/mm3 (0.00-0.02); NRBC Auto 0.0 /100 WBC (0.0-0.2); Platelet Count 106 K/mm3 (150-400); RDW Coefficient Variation 14.0 % (11.7-14.2); RDW Standard Deviation 51.1 fL (35.1-46.3)
[2025-09-20 07:28] VITALS: BP 147/97
[2025-09-20 07:28] LABS: Anion Gap 2.0 mmol/L (3-11); Blood Urea Nitrogen 17.0 mg/dL (8-24); CO2, Blood 42.0 mmol/L (21-32); Calcium, Blood 8.4 mg/dL (8.5-10.1); Chloride, Blood 97.0 mmol/L (98-108); Creatinine, Blood 0.64 mg/dL (0.60-1.20); Glucose, Blood 87.0 mg/dL (70-99); Potassium, Blood 4.3 mmol/L (3.5-5.5); Sodium, Blood 137.0 mmol/L (136-145)
[2025-09-20 15:13] VITALS: BP 150/76
--- NOTE | 2025-09-20 18:22 | NUR ---
SHIFT SUMMARY PT A&OX4, VSS, 4 L O2, DESATS WITH ACTIVITY, NON-TELE. HOME O2 EVAL DONE TODAY PT REQUIRED 12L WITH ACTIVITY. PT REPORTS LG BM YESTERDAY. IND IN ROOM, ABLE TO MAKE NEEDS KNOWN, CALL LIGHT IN REACH.
[2025-09-20 20:03] VITALS: BP 130/70
[2025-09-21 04:18] VITALS: BP 136/82
--- NOTE | 2025-09-21 05:02 | NUR ---
PT REMAINS ON 4L NC WITH INCREASED OXYGENATION NEEDS WITH EXERTION. PT CONTINUES TO HAVE A PRODUCTIVE STRONG COUGH. PT REFUSED NIGHTTIME PEPCID AND GUAIFENISIN/DXM STATING THAT THE EXTENDED RELEASE DID NOT WORK FOR HIM AND THAT HE'D USE THE ROBITUSSIN W/O DXM PRN. PT HAD STEADY O2 SATURATIONS IN THE MID TO LOW 90'S. PT CONCERNED FOR D/C STATING THAT HE'S WORRIED ABOUT HIS CHEST TIGHTNESS.
[2025-09-21 07:12] VITALS: BP 140/95
[2025-09-21 14:56] VITALS: BP 125/68
--- NOTE | 2025-09-21 18:11 | NUR ---
SHIFT SUMMARY PATIENT ALERT AND ORIENTED X4. PLEASANT AND RECEPTIVE DURING CARE. TOLERATING PO AND VOIDING. MEDICATION ADMINISTERED PER EMAR. PATIENT MAKE NEEDS KNOWN. NO ACUTE CHANGE DURING THIS SHIFT. VITAL SIGNS STABLE. ON 4L/NC. SELF-RESPOSITIONED THROUGHOUT THE SHIFT. BED LOCKED AND IN LOWEST POSITION. CALL LIGHT WITHIN REACH.
[2025-09-21 19:23] VITALS: BP 134/77
--- NOTE | 2025-09-22 02:21 | NUR ---
ORTHOPEDIC SHOE MAKER SUMMARY VSS. REFUSED HS MEDS, STATED DIDNT NEED THEM. A/O X 4. O2 AT 4L/MIN PER NC. CONT PULSE OX IN USE. SATS IN THE 90'S. ADMIT DX SEPSIS AND COPD. RECEIVING RT TREATMENTS. UP AD WENDIE WITH OBSERVATION FOR DESATING. HAS BEEN RESTING QUIETLY WITH FEW INTERRUPTIONS. CALL LIGHT IN REACH, RAILS UP X 2 AND BED IN LOW POSITION FOR SAFETY. WILL CONTINUE TO MONITOR.
[2025-09-22 04:51] LABS: BASOPHILS ABSOLUTE AUTO 0.00 K/mm3 (0.00-0.23); BASOPHILS PERCENT AUTO 0 % (0-2); EOSINOPHILS ABSOLUTE AUTO 0.01 K/mm3 (0.00-0.68); EOSINOPHILS PERCENT AUTO 0 % (0-6); Hematocrit 44.3 % (37.0-53.0); Hemoglobin 14.3 g/dL (13.5-17.5); IMMATURE GRAN ABSOLUTE AUTO 0.04 K/mm3 (0.00-0.10); IMMATURE GRAN PERCENT AUTO 1 % (0-1); LYMPHOCYTES ABSOLUTE AUTO 0.51 K/mm3 (0.84-5.20); LYMPHOCYTES PERCENT AUTO 10 % (21-46); MONOCYTES ABSOLUTE AUTO 0.50 K/mm3 (0.16-1.47); MONOCYTES PERCENT AUTO 10 % (4-13); Mean Corpuscular HGB Conc 32.3 g/dL (31.5-36.5); Mean Corpuscular Volume 100 fL (80-100); NEUTROPHILS ABSOLUTE AUTO 4.18 K/mm3 (1.96-9.15); NEUTROPHILS PERCENT AUTO 80 % (41-73); NRBC ABSOLUTE 0.00 K/mm3 (0.00-0.02); NRBC Auto 0.0 /100 WBC (0.0-0.2); Platelet Count 98 K/mm3 (150-400); RDW Coefficient Variation 13.9 % (11.7-14.2); RDW Standard Deviation 51.3 fL (35.1-46.3)
[2025-09-22 05:08] VITALS: BP 149/88
[2025-09-22 05:30] LABS: Anion Gap 4.0 mmol/L (3-11); Blood Urea Nitrogen 22.0 mg/dL (8-24); CO2, Blood 39.0 mmol/L (21-32); Calcium, Blood 8.2 mg/dL (8.5-10.1); Chloride, Blood 98.0 mmol/L (98-108); Creatinine, Blood 0.8 mg/dL (0.60-1.20); Glucose, Blood 80.0 mg/dL (70-99); Potassium, Blood 4.2 mmol/L (3.5-5.5); Sodium, Blood 137.0 mmol/L (136-145)
[2025-09-22 07:04] VITALS: BP 143/82
[2025-09-22 15:16] VITALS: BP 145/82
--- NOTE | 2025-09-22 17:59 | NUR ---
SHIFT SUMMARY PATIENT A&O X4. PLEASANT AND COOPERATIVE DURING CARE. SECOND O2 EVALUATION ORDERED. MEDICATION ADMINISTERED PER EMAR. PATIENT MAKE NEEDS KNOWN. NO ACUTE CHANGE DURING THIS SHIFT. VSS.. SELF-RESPOSITIONED THROUGHOUT THE SHIFT. BED LOCKED AND IN LOWEST POSITION. CALL LIGHT WITHIN REACH.
[2025-09-22 19:44] VITALS: BP 134/78
--- NOTE | 2025-09-23 03:27 | NUR ---
LEARNING DISABILITIES SPECIALIST SUMMARY VSS. A/O X 4, ADMIT DX COPD EXACERBATION. O2 PER NC WITH CONTINUOUS PULSE OX - MONITORING CONT IN THE 90'S. UP AD WENDIE, ABLE TO REPOSITOIN SELF IN BED WITHOUT ASSIST. NO C/O PAIN OR DISTRESS OF THIS WRITING. HAS BEEN RESTING QUIETLY WITH FEW INTERRUPTOINS. CALL LIGHT IN REACH, RAILS UP X 2 AND BED IN LOW POSITION FOR SAFETY. WILL CONT TO MONITOR
[2025-09-23 04:35] VITALS: BP 131/75
[2025-09-23 07:13] VITALS: BP 138/77
[2025-09-23 14:59] VITALS: BP 136/86
--- NOTE | 2025-09-23 17:53 | NUR ---
SHIFT SUMMARY PATIENT IS A&OX4. ON 4L OF O2 BY NC REST. SATURATION >88%. HE IS A SBA. HE IS CONTINENT. PLAN IS TO EVALUATE FOR HOME O2. HE IS COOPERATIVE WITH CARE AND CALLS APPROPRIATELY. BED IS LOW AND CALL LIGHT WITHIN REACH.
[2025-09-23 19:34] VITALS: BP 125/78
--- NOTE | 2025-09-24 03:23 | NUR ---
SHIFT FOREMAN SUMMARY VSS. ADMIT DX COPD EXACERBATIONS. REMAINS ON O2 PER NC, CURRENTLY AT 4L/MIN. LUNG SOUNDS DIMINISHED WITH SOME OCCASIONAL COUGHING. CONTINUOUS PULSE OX - 90'S. UP AD WENDIE TO BATHROOM. ABLE TO RESPOSITION SELF IN BED WITHOUT ASSIST. HAS BEEN RESTING/SLEEPING WITH FEW NOTED INTERRUPTIONS. CALL LIGHT IN REACH, RAILS UP X 2 AND BED IN LOW POSITION FOR SAFETY. WILL CONT TO MONITOR
[2025-09-24 03:42] VITALS: BP 141/84
[2025-09-24 08:07] VITALS: BP 144/90
[2025-09-24 15:23] VITALS: BP 140/79
[2025-09-24] MEDS ORDERED: GuaiFENesin 100 MG/5 ML 5ML UDC PO PRN (16:20)
[2025-09-24] MEDS ORDERED: GuaiFENesin 200 MG IR Tab PO PRN (16:25)
--- NOTE | 2025-09-24 17:23 | NUR ---
SHIFT SUMMARY PATIENT IS A&OX4, HE IS ON 4L OF O2 BY NASAL CANNULA AND SATURATION IS >88%, HOWEVER WHEN HE GETS UP AND WALKS AROUND HE DOES DESAT DOWN TO 82%. HE IS A STAND BY ASSIST TO BATHROOM AND IS CONTINENT. DR. PAUL CONSULTED AND WANTS TO TRY FOR PERCUSSION WITH RT TOMORROW TO HELP LOOSEN SECRETIONS. PATIENT STARTED TAKING THE PRESCRIBED EXPECTORANT TODAY. PLANS TO DISCHARGE ON TUESDAY IF OXYGEN DEMANDS DECREASE. HE IS CURRENTLY SITTING IN BED, CALL LIGHT IN REACH.
[2025-09-24 17:25] LABS: BASOPHILS ABSOLUTE AUTO 0.01 K/mm3 (0.00-0.23); BASOPHILS PERCENT AUTO 0 % (0-2); EOSINOPHILS ABSOLUTE AUTO 0.00 K/mm3 (0.00-0.68); EOSINOPHILS PERCENT AUTO 0 % (0-6); Hematocrit 48.7 % (37.0-53.0); Hemoglobin 16.3 g/dL (13.5-17.5); IMMATURE GRAN ABSOLUTE AUTO 0.08 K/mm3 (0.00-0.10); IMMATURE GRAN PERCENT AUTO 1 % (0-1); LYMPHOCYTES ABSOLUTE AUTO 0.19 K/mm3 (0.84-5.20); LYMPHOCYTES PERCENT AUTO 2 % (21-46); MONOCYTES ABSOLUTE AUTO 0.44 K/mm3 (0.16-1.47); MONOCYTES PERCENT AUTO 5 % (4-13); Mean Corpuscular HGB Conc 33.5 g/dL (31.5-36.5); Mean Corpuscular Volume 97 fL (80-100); NEUTROPHILS ABSOLUTE AUTO 7.51 K/mm3 (1.96-9.15); NEUTROPHILS PERCENT AUTO 91 % (41-73); NRBC ABSOLUTE 0.00 K/mm3 (0.00-0.02); NRBC Auto 0.0 /100 WBC (0.0-0.2); Platelet Count 111 K/mm3 (150-400); RDW Coefficient Variation 13.7 % (11.7-14.2); RDW Standard Deviation 49.1 fL (35.1-46.3)
--- NOTE | 2025-09-24 17:44 | NUR ---
[address] PAUL TO CHANGE GUAIFENESIN FROM 600MG XR TO 400MG IR Q4HR PRN. APPROVED. DR. PAUL APPROVED TO D/C LOVENOX, TESSALON PERLES, AND PEPCID BECAUSE THE PATIENT REFUSES THEM DAILY.
[2025-09-24 18:27] LABS: Alanine Aminotransfer (ALT/SGP 44.0 U/L (12-78); Albumin, Blood 3.2 g/dL (3.4-5.0); Albumin/Globulin Ratio 1.2 (0.8-1.8); Anion Gap 5.0 mmol/L (3-11); Aspartate Aminotrans (AST/SGOT 16.0 U/L (12-37); Bilirubin, Total 0.6 mg/dL (0.1-1.0); Blood Urea Nitrogen 21.0 mg/dL (8-24); CO2, Blood 35.0 mmol/L (21-32); Calcium, Blood 8.6 mg/dL (8.5-10.1); Chloride, Blood 97.0 mmol/L (98-108); Creatinine, Blood 0.61 mg/dL (0.60-1.20); Globulin, Blood 2.6 g/dL (2.2-4.0); Glucose, Blood 114.0 mg/dL (70-99); Potassium, Blood 4.8 mmol/L (3.5-5.5); Sodium, Blood 132.0 mmol/L (136-145); Total Protein, Blood 5.8 g/dL (6.4-8.2)
[2025-09-24 19:59] VITALS: BP 137/73
--- NOTE | 2025-09-25 03:51 | NUR ---
GRAPHITE GRINDER SUMMARY VSS. ADMIT DX COPD EXACERBATION, RESPIRATORY MEDS ADMIN, AND O2 AT 4L/MIN PER NC. CONT PULSE OX - MOSTLY LOW 90'S, BUT OCCASIONALLY IN THE HIGH 80'S. BLE SWELLING OF ANKLES CONTINUES - NOTE 3+. ENCOURAGED TO ELEVATE FEET WHILE IN BED. PILLOWS APPLIED TO HELP. UP AD WENDIE. HAS BEEN RESTING THROUGHOUT NOCT WITH FEW INTERRUPTIONS NOTED. CALL LIGHT IN REACH, ARILS UP X 2 AND BED IN LOW POSITION FOR SAFETY. WILL CONTINUE TO MONITOR.
[2025-09-25 04:13] VITALS: BP 132/80
[2025-09-25 07:49] VITALS: BP 137/87
[2025-09-25] MEDS ORDERED: FURO20 PO (08:04)
[2025-09-25 12:43] LABS: BASOPHILS ABSOLUTE AUTO 0.02 K/mm3 (0.00-0.23); BASOPHILS PERCENT AUTO 0 % (0-2); EOSINOPHILS ABSOLUTE AUTO 0.00 K/mm3 (0.00-0.68); EOSINOPHILS PERCENT AUTO 0 % (0-6); Hematocrit 49.6 % (37.0-53.0); Hemoglobin 16.3 g/dL (13.5-17.5); IMMATURE GRAN ABSOLUTE AUTO 0.15 K/mm3 (0.00-0.10); IMMATURE GRAN PERCENT AUTO 1 % (0-1); LYMPHOCYTES ABSOLUTE AUTO 0.26 K/mm3 (0.84-5.20); LYMPHOCYTES PERCENT AUTO 2 % (21-46); MONOCYTES ABSOLUTE AUTO 0.68 K/mm3 (0.16-1.47); MONOCYTES PERCENT AUTO 6 % (4-13); Mean Corpuscular HGB Conc 32.9 g/dL (31.5-36.5); Mean Corpuscular Volume 97 fL (80-100); NEUTROPHILS ABSOLUTE AUTO 9.76 K/mm3 (1.96-9.15); NEUTROPHILS PERCENT AUTO 90 % (41-73); NRBC ABSOLUTE 0.00 K/mm3 (0.00-0.02); NRBC Auto 0.0 /100 WBC (0.0-0.2); Platelet Count 119 K/mm3 (150-400); RDW Coefficient Variation 13.7 % (11.7-14.2); RDW Standard Deviation 49.5 fL (35.1-46.3)
--- NOTE | 2025-09-25 12:58 | NUR ---
1250 PATIENT PRESSED CALL LIGHT, THIS RN RESPONDED. PATIENT WAS VISIBLY UPSET AND USED CUSS WORDS TO EXPRESS DISDAIN ABOUT AN ORDER FROM DR. PAUL FOR OXYGEN FROM [facility] FOR THE PATIENT AT HOME. THE PATIENT EXPRESSED ANGER REGARDING A CONVERSATION WITH DR. PAUL YESTERDAY IN WHICH DR. PAUL MENTIONED THE POSSIBILITY OF NEEDING TO ORDER HIM A HOSPITAL BED AND BEDSIDE COMMODE IF HE WASN'T ABLE TO GET UP AND WALK AROUND WITH A REASONABLE AMOUNT OF OXYGEN. THE PATIENT IS VERY UPSET TODAY ABOUT THIS, THE PATIENT VERBALIZES HIS DISDAIN FOR THIS AND WOULD LIKE TO SPEAK TO THE DOCTOR ABOUT THESE TOPICS. I ADVISED THE PATIENT DR. PAUL ROUNDS IN THE EVENING AFTER CLINIC HOURS.
[2025-09-25 13:10] LABS: Alanine Aminotransfer (ALT/SGP 46.0 U/L (12-78); Albumin, Blood 3.4 g/dL (3.4-5.0); Albumin/Globulin Ratio 1.3 (0.8-1.8); Anion Gap 3.0 mmol/L (3-11); Aspartate Aminotrans (AST/SGOT 20.0 U/L (12-37); Bilirubin, Total 0.7 mg/dL (0.1-1.0); Blood Urea Nitrogen 24.0 mg/dL (8-24); CO2, Blood 38.0 mmol/L (21-32); Calcium, Blood 9.1 mg/dL (8.5-10.1); Chloride, Blood 97.0 mmol/L (98-108); Creatinine, Blood 0.71 mg/dL (0.60-1.20); Globulin, Blood 2.6 g/dL (2.2-4.0); Glucose, Blood 101.0 mg/dL (70-99); Potassium, Blood 5.1 mmol/L (3.5-5.5); Sodium, Blood 133.0 mmol/L (136-145); Total Protein, Blood 6.0 g/dL (6.4-8.2)
[2025-09-25 15:58] VITALS: BP 122/72
[2025-09-25 19:55] VITALS: BP 129/68
[2025-09-26 03:10] VITALS: BP 124/62
--- NOTE | 2025-09-26 05:25 | NUR ---
PT RESTED COMFORTABLY AFTER PRN DOSE OF MEDS FOR INSOMNIA PER EMAR. NO ACUTE EVENTS. VITALS STABLE.
[2025-09-26 07:37] VITALS: BP 153/89
[2025-09-26] MEDS ORDERED: Cholecalciferol 1000 Unit Tablet (=25MCG) PO ONE (11:20)
[2025-09-26] MEDS ORDERED: THEOPHYLLINE 300 MG PO SCH ×2 (12:25→22:00)
[2025-09-26 15:57] VITALS: BP 125/69
--- NOTE | 2025-09-26 16:30 | NUR ---
SHIFT SUMMARY: Pt was A and O x 4 with no change throughout the day. Ambulated on his own with no assistance needed. Observed oxygen saturation go down to 85% while he was eating, but when he was finsihed it increased to 91%. Patient independently titrated his oxygen when he got up, using up to [address] Bragg was informed. A tele order was initated and we are continuing to use pulse ox. Pt is laying in bed alert and oriented with call light in reach, oxygen is being utilized. No signs and symtoms of distress, plan of care is ongoing.
--- NOTE | 2025-09-26 16:34 | NUR ---
REVIEWED SERVICES DELIVERY DRIVER'S DOCUMENTATION AND AGREEABLE WITH FINDINGS.
--- NOTE | 2025-09-26 19:07 | NUR ---
TELE CALLED REPORTING ST ELEVATION. STATED THAT IT STARTED AROUND 1805 AND BECAME MORE CONSISTANT AT 1825. PATIENT ASSESS AND NO SIGNS OR SYMPTOMS OR DISTRESS. CALL MADE TO CARMEN AND REQUEST EKG. EKG ORDERED.
--- NOTE | 2025-09-26 19:49 | NUR ---
EKG obtained for ST Elevation on TELE 194409/26/25 EKG obtained, the EKG shows SR w/ PACs w/ aberrant conduction. Possible L atrial enlargment. R BBB. Pt remains asymptomatic. Will update hospitalist during next call out.
[2025-09-26 19:50] VITALS: BP 104/65
[2025-09-26] MEDS ORDERED: THEOPHYLLINE 200 MG PO SCH (21:50)
[2025-09-27] VITALS (7 sets, daily range): BP systolic 107–138; BP diastolic 67–78
[2025-09-27 05:05] LABS: BASOPHILS ABSOLUTE AUTO 0.02 K/mm3 (0.00-0.23); BASOPHILS PERCENT AUTO 0 % (0-2); EOSINOPHILS ABSOLUTE AUTO 0.00 K/mm3 (0.00-0.68); EOSINOPHILS PERCENT AUTO 0 % (0-6); Hematocrit 45.6 % (37.0-53.0); Hemoglobin 15.1 g/dL (13.5-17.5); IMMATURE GRAN ABSOLUTE AUTO 0.20 K/mm3 (0.00-0.10); IMMATURE GRAN PERCENT AUTO 2 % (0-1); LYMPHOCYTES ABSOLUTE AUTO 0.20 K/mm3 (0.84-5.20); LYMPHOCYTES PERCENT AUTO 2 % (21-46); MONOCYTES ABSOLUTE AUTO 0.40 K/mm3 (0.16-1.47); MONOCYTES PERCENT AUTO 5 % (4-13); Mean Corpuscular HGB Conc 33.1 g/dL (31.5-36.5); Mean Corpuscular Volume 99 fL (80-100); NEUTROPHILS ABSOLUTE AUTO 7.49 K/mm3 (1.96-9.15); NEUTROPHILS PERCENT AUTO 90 % (41-73); NRBC ABSOLUTE 0.00 K/mm3 (0.00-0.02); NRBC Auto 0.0 /100 WBC (0.0-0.2); Platelet Count 117 K/mm3 (150-400); RDW Coefficient Variation 13.7 % (11.7-14.2); RDW Standard Deviation 49.8 fL (35.1-46.3)
--- NOTE | 2025-09-27 05:39 | NUR ---
Shift Summary Pt on telemetry. diamond powder technician called at the start of shift notifying ST elevation, see previous nursing note. Follow up EKG showed no ST elevation, pt asymptomatic. diamond powder technician did call 3 more times, twice for trigeminy and once for ST elevation. No change in PT condition. Pt is on 4-6L O2 NC and cont. O2 monitor. He desats quickly with activity and sometimes desats down to 86% at rest. Pt is AOx4, independent in the room. No c/o of pain or nausea. Lungs are wheezy, pt was able to cough up some dark green sputum this shift.
[2025-09-27 05:50] LABS: Alanine Aminotransfer (ALT/SGP 42.0 U/L (12-78); Albumin, Blood 3.0 g/dL (3.4-5.0); Albumin/Globulin Ratio 1.4 (0.8-1.8); Anion Gap 8.0 mmol/L (3-11); Aspartate Aminotrans (AST/SGOT 17.0 U/L (12-37); Bilirubin, Total 0.5 mg/dL (0.1-1.0); Blood Urea Nitrogen 31.0 mg/dL (8-24); CO2, Blood 33.0 mmol/L (21-32); Calcium, Blood 8.8 mg/dL (8.5-10.1); Chloride, Blood 98.0 mmol/L (98-108); Creatinine, Blood 0.72 mg/dL (0.60-1.20); Globulin, Blood 2.1 g/dL (2.2-4.0); Glucose, Blood 117.0 mg/dL (70-99); Potassium, Blood 4.5 mmol/L (3.5-5.5); Sodium, Blood 134.0 mmol/L (136-145); Total Protein, Blood 5.1 g/dL (6.4-8.2)
[2025-09-27] MEDS ORDERED: Cholecalciferol 1000 Unit Tablet (=25MCG) PO SCH (09:00)
[2025-09-27] MEDS ORDERED: TRELEGY ELLIPTA 200/62.5/25 MCG INHALER INH SCH (09:00)
--- NOTE | 2025-09-27 10:30 | NUR ---
NOTIFIED DR. UMANZOR OF MULTIPLE RUNS OF SVT. VERBAL ORDERS GIVEN AND PLACED. CHECKING MAG LEVEL, STOPPING VIRA DUR, AND CONSULTING PULMONOLOGY.
[2025-09-27] MEDS ORDERED: Sodium Chloride 3% For Inhalation 15 ML VIAL.NEB INH SCH (13:00)
[2025-09-27] MEDS ORDERED: Aztreonam 2,000 MG in NS 100 ML IV SCH (14:00)
--- NOTE | 2025-09-27 18:09 | NUR ---
SHIFT SUMMARY PATIENT A&O X4. PLEASANT AND COOPERATIVE DURING CARE. MEDICATION ADMINISTERED PER EMAR. PATIENT MAKE NEEDS KNOWN. NO ACUTE CHANGE DURING THIS SHIFT. SELF-RESPOSITIONED THROUGHOUT THE SHIFT. TOLERATING PO. HEALTH PROGRAM MANAGER CONSULTED, ECHO AND VENOUS DUPLEX DONE TODAY. BED LOCKED AND IN LOWEST POSITION. CALL LIGHT WITHIN REACH.
[2025-09-28 04:19] VITALS: BP 125/77
[2025-09-28 05:07] LABS: BASOPHILS ABSOLUTE AUTO 0.03 K/mm3 (0.00-0.23); BASOPHILS PERCENT AUTO 0 % (0-2); EOSINOPHILS ABSOLUTE AUTO 0.00 K/mm3 (0.00-0.68); EOSINOPHILS PERCENT AUTO 0 % (0-6); Hematocrit 45.7 % (37.0-53.0); Hemoglobin 15.2 g/dL (13.5-17.5); IMMATURE GRAN ABSOLUTE AUTO 0.22 K/mm3 (0.00-0.10); IMMATURE GRAN PERCENT AUTO 2 % (0-1); LYMPHOCYTES ABSOLUTE AUTO 0.21 K/mm3 (0.84-5.20); LYMPHOCYTES PERCENT AUTO 2 % (21-46); MONOCYTES ABSOLUTE AUTO 0.49 K/mm3 (0.16-1.47); MONOCYTES PERCENT AUTO 5 % (4-13); Mean Corpuscular HGB Conc 33.3 g/dL (31.5-36.5); Mean Corpuscular Volume 98 fL (80-100); NEUTROPHILS ABSOLUTE AUTO 9.01 K/mm3 (1.96-9.15); NEUTROPHILS PERCENT AUTO 91 % (41-73); NRBC ABSOLUTE 0.00 K/mm3 (0.00-0.02); NRBC Auto 0.0 /100 WBC (0.0-0.2); Platelet Count 111 K/mm3 (150-400); RDW Coefficient Variation 13.6 % (11.7-14.2); RDW Standard Deviation 49.5 fL (35.1-46.3)
[2025-09-28 05:56] LABS: Anion Gap 9.0 mmol/L (3-11); Blood Urea Nitrogen 31.0 mg/dL (8-24); CO2, Blood 31.0 mmol/L (21-32); Calcium, Blood 8.7 mg/dL (8.5-10.1); Chloride, Blood 98.0 mmol/L (98-108); Creatinine, Blood 0.65 mg/dL (0.60-1.20); Glucose, Blood 134.0 mg/dL (70-99); Potassium, Blood 4.8 mmol/L (3.5-5.5); Sodium, Blood 133.0 mmol/L (136-145); Thyroid Stimulating Hormone 0.83 uIU/mL (0.360-4.800)
--- NOTE | 2025-09-28 07:25 | NUR ---
SHIFT SUMMARY A/Ox4, VSS ON 5L. SPUTUM SAMPLE SENT TO LAB. RUNNING SINUS RHYTHM WITH BBB. NOTIFIED OF 7 BEAT RUN OF VTAC OVERNIGHT; PT WAS SLEEPING, WHEN AWOKEN HE DENIED CHEST PAIN/PRESSURE OR OTHER SYMPTOMS. NO ACUTE CHANGES OVERNIGHT. SAFETY PRECAUTIONS IN PLACE. SBA TO RESTROOM.
[2025-09-28 07:27] VITALS: BP 145/80
[2025-09-28 08:08] LABS: pH Blood Arterial 7.38 (7.35-7.45)
--- NOTE | 2025-09-28 16:42 | NUR ---
ASSUMED CARE. PATIENT A/O X4 SITTING AT EDGE OF BED TALKATIVE.
[2025-09-28 19:09] VITALS: BP 122/70
[2025-09-28 23:01] VITALS: BP 115/70
[2025-09-29 03:05] VITALS: BP 116/75
[2025-09-29 04:54] LABS: Hematocrit 46.8 % (37.0-53.0); Hemoglobin 15.6 g/dL (13.5-17.5); Mean Corpuscular HGB Conc 33.3 g/dL (31.5-36.5); Mean Corpuscular Volume 98 fL (80-100); NRBC ABSOLUTE 0.00 K/mm3 (0.00-0.02); NRBC Auto 0.0 /100 WBC (0.0-0.2); Platelet Count 117 K/mm3 (150-400); RDW Coefficient Variation 13.5 % (11.7-14.2); RDW Standard Deviation 49.1 fL (35.1-46.3)
[2025-09-29 05:30] LABS: Anion Gap 5.0 mmol/L (3-11); Blood Urea Nitrogen 29.0 mg/dL (8-24); CO2, Blood 36.0 mmol/L (21-32); Calcium, Blood 8.7 mg/dL (8.5-10.1); Chloride, Blood 98.0 mmol/L (98-108); Creatinine, Blood 0.62 mg/dL (0.60-1.20); Glucose, Blood 130.0 mg/dL (70-99); Potassium, Blood 4.9 mmol/L (3.5-5.5); Sodium, Blood 134.0 mmol/L (136-145)
[2025-09-29 05:33] LABS: BAND PERCENT MAN 4 % (0-8); BASOPHILS ABSOLUTE MAN 0.00 K/mm3 (0.00-0.23); BASOPHILS PERCENT MAN 0 % (0-2); EOSINOPHILS ABSOLUTE MAN 0.00 K/mm3 (0.00-0.68); EOSINOPHILS PERCENT MAN 0 % (0-6); LYMPHOCYTES ABSOLUTE MAN 0.47 K/mm3 (0.84-5.20); LYMPHOCYTES PERCENT MAN 5 % (21-46); METAMYELOCYTE ABSOLUTE MAN 0.09 K/mm3 (0.00-0.00); METAMYELOCYTE PERCENT MAN 1 % (0-0); MONOCYTES ABSOLUTE MAN 0.19 K/mm3 (0.16-1.47); MONOCYTES PERCENT MAN 2 % (4-13); MYELOCYTE ABSOLUTE MAN 0.09 K/mm3 (0.00-0.00); MYELOCYTE PERCENT MAN 1 % (0-0); NEUTROPHILS ABSOLUTE MAN 8.71 K/mm3 (1.96-9.15); SEG NEUTROPHILS PERCENT MAN 87 % (41-73)
--- NOTE | 2025-09-29 05:55 | NUR ---
SHIFT SUMMARY A/Ox4, VSS ON 5L. PT REFUSED BIPAP OVERNIGHT; EDUCATION PROVIDED. PT REPORTS FEELING BETTER. STATES THAT CONGESTION IS "LOOSENING UP", STRONG PRODUCTIVE COUGH NOTED. PT DENIES PAIN, NAUSEA, SOB.
[2025-09-29 07:40] VITALS: BP 140/85
--- NOTE | 2025-09-29 18:19 | NUR ---
SHIFT SUMMARY PATIENT IN BED MOST OF THIS SHIFT. CONTINUES TO EXPERIENCE SOB WITH ACTIVITY, ON 5 LITERS NC. TOLERATING ABX WELL. ENDORSES THAT HE WILL CONSIDER WEARING BIPAP TONIGHT. CALL LIGHT IN REACH, ABLE TO MAKE NEEDS KNOWN.
[2025-09-29 19:46] VITALS: BP 130/76
[2025-09-30 00:30] VITALS: BP 125/72
[2025-09-30 04:24] VITALS: BP 121/78
[2025-09-30 05:24] LABS: BASOPHILS ABSOLUTE AUTO 0.02 K/mm3 (0.00-0.23); BASOPHILS PERCENT AUTO 0 % (0-2); EOSINOPHILS ABSOLUTE AUTO 0.00 K/mm3 (0.00-0.68); EOSINOPHILS PERCENT AUTO 0 % (0-6); Hematocrit 43.8 % (37.0-53.0); Hemoglobin 14.7 g/dL (13.5-17.5); IMMATURE GRAN ABSOLUTE AUTO 0.14 K/mm3 (0.00-0.10); IMMATURE GRAN PERCENT AUTO 2 % (0-1); LYMPHOCYTES ABSOLUTE AUTO 0.18 K/mm3 (0.84-5.20); LYMPHOCYTES PERCENT AUTO 2 % (21-46); MONOCYTES ABSOLUTE AUTO 0.32 K/mm3 (0.16-1.47); MONOCYTES PERCENT AUTO 4 % (4-13); Mean Corpuscular HGB Conc 33.6 g/dL (31.5-36.5); Mean Corpuscular Volume 96 fL (80-100); NEUTROPHILS ABSOLUTE AUTO 7.69 K/mm3 (1.96-9.15); NEUTROPHILS PERCENT AUTO 92 % (41-73); NRBC ABSOLUTE 0.00 K/mm3 (0.00-0.02); NRBC Auto 0.0 /100 WBC (0.0-0.2); Platelet Count 111 K/mm3 (150-400); RDW Coefficient Variation 13.3 % (11.7-14.2); RDW Standard Deviation 47.5 fL (35.1-46.3)
[2025-09-30 05:44] LABS: Anion Gap 8.0 mmol/L (3-11); Blood Urea Nitrogen 23.0 mg/dL (8-24); CO2, Blood 34.0 mmol/L (21-32); Calcium, Blood 8.5 mg/dL (8.5-10.1); Chloride, Blood 99.0 mmol/L (98-108); Creatinine, Blood 0.6 mg/dL (0.60-1.20); Glucose, Blood 125.0 mg/dL (70-99); Potassium, Blood 4.7 mmol/L (3.5-5.5); Sodium, Blood 136.0 mmol/L (136-145)
[2025-09-30 07:22] VITALS: BP 132/81
[2025-09-30] MEDS ORDERED: Enoxaparin 40 MG/0.4 ML SYR SC SCH (09:00)
[2025-09-30 15:03] VITALS: BP 132/74
--- NOTE | 2025-09-30 18:04 | NUR ---
SHIFT SUMMARY PATIENT IS A&OX4, INDEPENDENT IN THE ROOM. ON 5L O2 AND RECIEVING BREATHING TREATMENTS Q4HR. O2 SATURATION STABLE AT >90%. HE IS ON TELEMETRY AND HAD AN EPISODE OF BIGEMINY. CURRENTLY RUNNING AT SINUS 89BPM WITH BBB AND PVC. TODAY HE HAS BEEN COOPERATIVE WITH CARE AND PLEASANT. HE USES THE CALL SYSTEM APPROPRIATELY. BED IS LOCKED AND LOW, CALL LIGHT IN REACH.
[2025-09-30 19:55] VITALS: BP 123/75
[2025-09-30 23:46] VITALS: BP 125/69
--- NOTE | 2025-10-01 03:48 | NUR ---
SHIFT SUMMARY 70 YR M ADMITTED ON 09/15/25. FULL CODE. NO ACUTE CHANGES THIS SHIFT. PT HAS BEEN PLEASANT AND COOPERATIVE WITH CARE. NO C/O PAIN OR DISCOMFORT THIS SHIFT. PT ASKED THIS NURSE TO WRITE DOWN THE NAME OF HIS INFECTION AND THE TYPE OF ABX HE IS GETTING SO HE CAN KEEP IT FOR FUTURE REFERENCE. THIS INFO WAS GIVEN TO HIM. NO ADVERSE EFFECTS REPORTED FROM DATABASE ADMINISTRATION ASSOCIATE. PT IS INDEPENDANT AND ABLE TO MAKE HIS NEEDS KNOWN. BED IN LOW POSITION AND CALL LIGHT IN REACH.
[2025-10-01 04:29] VITALS: BP 113/71
[2025-10-01 05:59] LABS: BASOPHILS ABSOLUTE AUTO 0.02 K/mm3 (0.00-0.23); BASOPHILS PERCENT AUTO 0 % (0-2); EOSINOPHILS ABSOLUTE AUTO 0.00 K/mm3 (0.00-0.68); EOSINOPHILS PERCENT AUTO 0 % (0-6); Hematocrit 43.2 % (37.0-53.0); Hemoglobin 14.6 g/dL (13.5-17.5); IMMATURE GRAN ABSOLUTE AUTO 0.12 K/mm3 (0.00-0.10); IMMATURE GRAN PERCENT AUTO 1 % (0-1); LYMPHOCYTES ABSOLUTE AUTO 0.20 K/mm3 (0.84-5.20); LYMPHOCYTES PERCENT AUTO 2 % (21-46); MONOCYTES ABSOLUTE AUTO 0.31 K/mm3 (0.16-1.47); MONOCYTES PERCENT AUTO 4 % (4-13); Mean Corpuscular HGB Conc 33.8 g/dL (31.5-36.5); Mean Corpuscular Volume 96 fL (80-100); NEUTROPHILS ABSOLUTE AUTO 8.19 K/mm3 (1.96-9.15); NEUTROPHILS PERCENT AUTO 93 % (41-73); NRBC ABSOLUTE 0.00 K/mm3 (0.00-0.02); NRBC Auto 0.0 /100 WBC (0.0-0.2); Platelet Count 110 K/mm3 (150-400); RDW Coefficient Variation 13.4 % (11.7-14.2); RDW Standard Deviation 47.7 fL (35.1-46.3)
[2025-10-01 06:12] LABS: Anion Gap 4.0 mmol/L (3-11); Blood Urea Nitrogen 22.0 mg/dL (8-24); CO2, Blood 36.0 mmol/L (21-32); Calcium, Blood 8.3 mg/dL (8.5-10.1); Chloride, Blood 100.0 mmol/L (98-108); Creatinine, Blood 0.49 mg/dL (0.60-1.20); Glucose, Blood 121.0 mg/dL (70-99); Potassium, Blood 4.6 mmol/L (3.5-5.5); Sodium, Blood 135.0 mmol/L (136-145)
[2025-10-01 07:52] VITALS: BP 133/84
[2025-10-01 11:06] VITALS: BP 138/80
[2025-10-01 15:15] VITALS: BP 125/76
--- NOTE | 2025-10-01 16:48 | NUR ---
SHIFT SUMMARY PATIENT IS A&OX4, ABLE TO MAKE NEEDS KNOWN AND CALLS APPROPRIATELY. ON 4L OF O2 BY NASAL CANNULA, WITH >90% O2 SATURATION. CONTINENT, INDEPENDENT IN THE ROOM. ON TELEMETRY, SINUS RHYTHM WITH BBB AND PAC AT 86BPM. THERE HAS BEEN NO ACUTE EVENTS THIS SHIFT. THE BED IS LOW AND LOCKED, CALL LIGHT IN REACH. PLANS TO POSSIBLY DISCHARGE HOME TOMORROW.
[2025-10-01 19:41] VITALS: BP 117/72
[2025-10-01 23:45] VITALS: BP 122/77
--- NOTE | 2025-10-02 04:26 | NUR ---
SHIFT SUMMARY 70 YR M ADMITTED ON 09/15/25. FULL CODE. NO ACUTE CHANGES THIS SHIFT. PT IS CURRENTLY ON 3 L O2 W/ SATS STAYING >90. HE STATES HE IS LOOKING FORWARD TO GOING HOME THIS A.M. AND RELAXING IN HIS OWN RECLINER. HE STATES THAT HE WILL TRY TO CONTINUE TO ABSTAIN FROM CIGARETTES BUT HE BELEIVES HE WILL SMOKE AGAIN. HE HAS BEEN PLEASANT AND COOPERATIVE WITH CARE. BED IN LOW POSITION FOR SAFETY AND CAll LIGHT IN REACH.
[2025-10-02 04:32] VITALS: BP 121/79
[2025-10-02 05:41] LABS: BASOPHILS ABSOLUTE AUTO 0.02 K/mm3 (0.00-0.23); BASOPHILS PERCENT AUTO 0 % (0-2); EOSINOPHILS ABSOLUTE AUTO 0.01 K/mm3 (0.00-0.68); EOSINOPHILS PERCENT AUTO 0 % (0-6); Hematocrit 43.4 % (37.0-53.0); Hemoglobin 14.7 g/dL (13.5-17.5); IMMATURE GRAN ABSOLUTE AUTO 0.13 K/mm3 (0.00-0.10); IMMATURE GRAN PERCENT AUTO 2 % (0-1); LYMPHOCYTES ABSOLUTE AUTO 0.73 K/mm3 (0.84-5.20); LYMPHOCYTES PERCENT AUTO 8 % (21-46); MONOCYTES ABSOLUTE AUTO 0.67 K/mm3 (0.16-1.47); MONOCYTES PERCENT AUTO 8 % (4-13); Mean Corpuscular HGB Conc 33.9 g/dL (31.5-36.5); Mean Corpuscular Volume 96 fL (80-100); NEUTROPHILS ABSOLUTE AUTO 7.32 K/mm3 (1.96-9.15); NEUTROPHILS PERCENT AUTO 83 % (41-73); NRBC ABSOLUTE 0.00 K/mm3 (0.00-0.02); NRBC Auto 0.0 /100 WBC (0.0-0.2); Platelet Count 110 K/mm3 (150-400); RDW Coefficient Variation 13.5 % (11.7-14.2); RDW Standard Deviation 48.8 fL (35.1-46.3)
[2025-10-02 06:06] LABS: Anion Gap 3.0 mmol/L (3-11); Blood Urea Nitrogen 29.0 mg/dL (8-24); CO2, Blood 38.0 mmol/L (21-32); Calcium, Blood 8.0 mg/dL (8.5-10.1); Chloride, Blood 98.0 mmol/L (98-108); Creatinine, Blood 0.68 mg/dL (0.60-1.20); Glucose, Blood 84.0 mg/dL (70-99); Potassium, Blood 4.5 mmol/L (3.5-5.5); Sodium, Blood 134.0 mmol/L (136-145)
[2025-10-02 07:20] VITALS: BP 123/82
[2025-10-02] MEDS ORDERED: Mucus Relief400 MG PO (11:26)
[2025-10-02] MEDS ORDERED: Prednisone10 MG (11:54)
[2025-10-02] MEDS ORDERED: AMOCLA875 PO (11:55)
[2025-10-02] MEDS ORDERED: VISBIOME 112.51 EACH PO (11:55)
[2025-10-02] MEDS ORDERED: DOXY100 PO (11:56)
--- NOTE | 2025-10-02 14:37 | NUR ---
PT DC'D WITH INSTRUCTIONS 1350- WHEELCHIAR OUTSIDE TO CAR HE WILL DRIVE HIMSELF HOME. PT HAS HIS OWN PORTABLE OXYGEN TANK. RX CALLED TO [facility]. INSIDE SALES SPECIALIST ORDERED OXYGEN CONCENTRATOR TO BE DELIVERED TO HOUSE FROM [facility]. PT SENT HOME WITH REQUESTED OXYGEN TUBING AND EXTENDERS. SENT HOME WITH ALL BELONGINGS LISTED.
== END 2025-10-02 14:25 | disposition home health service (06) | DRG 193 ==
LOC: ER 13:24 → MEDS 13:25
PROVIDERS: Family Medicine; Internal Medicine; Internal Medicine Critical Care Medicine; Student in an Organized Health Care Education/Training Program; ADMIT Internal Medicine
PROC: 3E03329 Introduction of Other Anti-infective into Peripheral Vein, Percutaneous Approach (ICD-10-PCS; 2025-09-15)
PROC: 4A033R1 Measurement of Arterial Saturation, Peripheral, Percutaneous Approach (ICD-10-PCS; 2025-09-28)
PROC: 5A09357 Assistance with Respiratory Ventilation, Less than 24 Consecutive Hours, Continuous Positive Airway Pressure (ICD-10-PCS; principal; 2025-09-29)
DX: J18.9 Pneumonia, unspecified organism (principal); J96.21 Acute and chronic respiratory failure with hypoxia; J44.0 Chronic obstructive pulmonary disease with (acute) lower respiratory infection; J44.1 Chronic obstructive pulmonary disease with (acute) exacerbation; E87.1 Hypo-osmolality and hyponatremia; I47.10 Supraventricular tachycardia, unspecified; J96.12 Chronic respiratory failure with hypercapnia; I10 Essential (primary) hypertension; Z96.651 Presence of right artificial knee joint; F17.210 Nicotine dependence, cigarettes, uncomplicated; I45.10 Unspecified right bundle-branch block; I49.3 Ventricular premature depolarization; J43.9 Emphysema, unspecified; Z99.81 Dependence on supplemental oxygen; I48.0 Paroxysmal atrial fibrillation; N40.0 Benign prostatic hyperplasia without lower urinary tract symptoms; D69.6 Thrombocytopenia, unspecified; Z88.8 Allergy status to other drugs, medicaments and biological substances; Z79.82 Long term (current) use of aspirin; Z79.899 Other long term (current) drug therapy; Z79.51 Long term (current) use of inhaled steroids; Z87.19 Personal history of other diseases of the digestive system; Z98.890 Other specified postprocedural states
CPT/HCPCS: 36415; 36600; 71045; 71046; 71260; 80048; 80053; 82803; 83605; 83735; 83880; 84145; 84443; 84484; 85025; 87040; 87070; 87077; 87186; 87205; 87637; 93005; 93010; 93308; 93321; 93971; 94640; 94660; 94664; 94667; 94760; 94761; 94762; 96365; 96368; 96375; 96376; 99285-25; A9270; G0378; J0456; J0696; J2919; J7050; J7512; Q9967